=== PATIENT | female | born 1990 | race Hispanic/Latino ===

== ENCOUNTER 2018-05-06 01:28 | Emergency (ER) | payer OTHER, SELFPAY ==
[2018-05-06 02:53] LABS: Urine Bacteria <20 /HPF (<20); Urine Culture Reflex Order NOT NEEDED; Urine RBC <5 /HPF (NONE SEEN)
[2018-05-06 03:48] LABS: Absolute Lymphocytes (CBC) 3.7 K/uL (0.7-4.9); Absolute Monocytes 0.4 K/uL (0.1-1.3); Basophils % 0.6 % (0-1.3); Eosinophils % 2.6 % (0-4.4); Hematocrit 35.4 % (36.0-45.0); Lymphocytes % 32.2 % (15.3-44.8); MCH 29.2 pg (27.0-35.0); MCV 87.2 fL (80-100); MPV 8.3 fL (7.6-11.3); Monocytes % 3.6 % (3.3-12.3); RBC Red Blood Cell Count 4.06 M/uL (3.86-4.86)
[2018-05-06 03:49] LABS: Bicarbonate 25 mEq/L (21-31); Glucose Level 109 mg/dL (65-120); Potassium 3.5 mEq/L (3.6-5.0); Sodium Level 135 mEq/L (135-145)
[2018-05-06 03:50] LABS: BUN Blood Urea Nitrogen 8 mg/dL (6-20)
[2018-05-06 03:56] LABS: Albumin 4.3 g/dL (3.2-5.5); Bilirubin Direct 0.1 mg/dL (0-0.2); Bilirubin Total 0.5 mg/dL (0.3-1.2); Protein, Total 8.3 g/dL (6.0-8.3)
[2018-05-06 04:04] LABS: HCG, Quantitative 47.9 mIU/mL (<5)
[2018-05-06 04:07] LABS: Blood Morphology Comment NOT SEEN (NOT SEEN); Platelet Estimate ADEQ; Urine White Blood Cell Casts OK
[2018-05-06 04:09] LABS: Urine Blood 1+ (NEG); Urine Glucose NEGATIVE (NEG); Urine Protein NEGATIVE (NEG); Urine Specific Gravity 1.015 (1.005-1.030)
--- NOTE | 2018-05-06 04:14 | ER ---
Nurse's Notes [facility] Name: Iva Frye Age: 28 yrs Sex: Female : 1990 Arrival Date: 05/06/2018 Time: 01:29 Bed 16 Private MD: Diagnosis: Lower abdominal pain, unspecified;Encounter for test, result positive Presentation: 05/06 01:35 Presenting complaint: Patient states: that she is having severe left lower pelvic pain. fc Vomiting x 2 days and has had no bowel movement in 2 days. Took test last night at 2200 and it was positive. Transition of care: patient was not received from another setting of care. Onset of symptoms was May 03, 2018. Risk Assessment: Do you want to hurt yourself or someone else? Patient reports no desire to harm self or others. Initial Sepsis Screen: Does the patient meet any 2 criteria? HR > 90 bpm. Yes Does the patient have a suspected source of infection? No. Patient's initial sepsis screen is negative. Care prior to arrival: None. 01:35 Method Of Arrival: Ambulatory 01:35 Acuity: TIARRA 3 Triage Assessment: 01:40 General: Appears uncomfortable, obese, Behavior is calm, cooperative, appropriate for age. Pain: Complains of pain in left lower quadrant Pain currently is 5 out of 10 on a pain scale. at worst was 7 out of 10 on a pain scale. Quality of pain is described as sharp, stabbing, squeezing, Pain began 2-3 days ago. Is continuous. EENT: No deficits noted. Neuro: Level of Consciousness is awake, alert, obeys commands, Oriented to person, place, time, situation. Cardiovascular: No deficits noted. GI: Reports lower abdominal pain, constipation. : No deficits noted. Derm: Skin is pink, warm \T\ dry. Musculoskeletal: Circulation, motion, and sensation intact. Capillary refill < 3 seconds, Range of motion: intact in all extremities. 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 - Social history:: Smoking status: Patient uses tobacco products, 2 cigarettes a day, Patient uses alcohol, occasionally. Patient/guardian denies using street drugs. - Ebola Screening: : Patient negative for fever greater than or equal to 101.5 degrees Fahrenheit, and additional compatible Ebola Virus Disease symptoms Patient denies exposure to infectious person Patient denies travel to an Ebola-affected area in the 21 days before illness onset. - Family history:: not pertinent. - Hospitalizations: : No recent hospitalization is reported. Screenin:45 Abuse screen: Denies threats or abuse. Nutritional screening: No deficits noted. jd3 Tuberculosis screening: No symptoms or risk factors identified. Fall Risk Gait- Normal/Bed Rest/Wheelchair (0 pts) Mental Status- Oriented to own ability (0 pts). Total Rm Fall Scale indicates No Risk (0-24 pts). Assessment: 01:55 General: Appears in no apparent distress. uncomfortable, Behavior is calm, cooperative, jd3 appropriate for age. Pain: Complains of pain in left inguinal area Pain does not radiate. Quality of pain is described as aching, crampy, pressure, Pain began 2-3 days ago. Also complains of nausea. Neuro: Level of Consciousness is awake, alert, obeys commands, Oriented to person, place, time, situation, Appropriate for age. Cardiovascular: Heart tones S1 S2 present Capillary refill < 3 seconds Patient's skin is warm and dry. Respiratory: Airway is patent Respiratory effort is even, unlabored, Respiratory pattern is regular, symmetrical, Breath sounds are clear bilaterally. GI: Abdomen is round Bowel sounds present X 4 quads. Abd is soft X 4 quads Abdomen is tender to palpation in left lower quadrant Reports constipation, nausea, vomiting. : No signs and/or symptoms were reported regarding the genitourinary system. EENT: No signs and/or symptoms were reported regarding the EENT system. Derm: Skin is intact, Skin is dry, Skin is normal, Skin temperature is warm. Musculoskeletal: Circulation, motion, and sensation intact. Range of motion: intact in all extremities. 03:31 Reassessment: Patient appears in no apparent distress at this time. Patient and/or jd3 family updated on plan of care and expected duration. Pain level reassessed. Patient is alert, oriented x 3, equal unlabored respirations, skin warm/dry/pink. 04:20 Reassessment: Patient appears in no apparent distress at this time. Patient and/or bs1 family updated on plan of care and expected duration. Pain level reassessed. Patient is alert, oriented x 3, equal unlabored respirations, skin warm/dry/pink. Instructed patient to follow up with an OB Dr and get HCG levels rechecked. vitamins and when to come back to the ER if having severe pain or bleeding. Patient states feeling better. Vital Signs: 01:38 BP 137 / 76; Pulse 101; Resp 18; Temp 98.5(O); Pulse Ox 100% on R/A; Weight 101.6 kg fc (R); Height 5 ft. 4 in. (162.56 cm) (R); Pain 5/10; 03:31 BP 114 / 75; Pulse 94; Resp 18 S; Pulse Ox 100% on R/A; Pain 5/10; jd3 04:15 BP 116 / 72; Pulse 88; Resp 17; Temp 98(O); Pulse Ox 100% on R/A; Pain 0/10; bs1 01:38 Body Mass Index 38.45 (101.60 kg, 162.56 cm) ED Course: 01:29 Patient arrived in ED. am2 01:36 Triage completed. fc 01:38 Arm band placed on Patient placed in waiting room, Patient notified of wait time. fc 01:55 Kenton Li, HERRERA is Primary Nurse. jd3 02:18 Rony Garcia MD is Attending Physician. rn 02:45 Patient has correct armband on for positive identification. Placed in gown. Bed in low jd3 position. Call light in reach. Side rails up X 1. Adult w/ patient. 02:49 Patient moved back from ultrasound. lily 02:51 Transvaginal Study Probe In Process Unspecified. EDMS 03:15 Initial lab(s) drawn, by me, sent to lab. Inserted saline lock: 20 gauge in right cb2 antecubital area, using aseptic technique. Blood collected. 04:19 No provider procedures requiring assistance completed. IV discontinued, bleeding bs1 controlled, No redness/swelling at site. Pressure dressing applied. Administered Medications: No medications were administered Outcome: 04:14 Discharge ordered by . rn 04:20 Discharged to home ambulatory. bs1 04:20 Condition: stable 04:20 Discharge instructions given to patient, Instructed on discharge instructions, follow up and referral plans. Demonstrated understanding of instructions, follow-up care. 04:23 Patient left the ED. bs1 Signatures: Dispatcher [employer] EDMS Marleen Oreilly, RN RN Rony Garcia MD MD rn Dupre, Jacques jd Moreno, Amanda am2 Bulan, Christian cb2 Davies, Jonathon RN RN jFelicia Eden RN RN bs1 Corrections: (The following items were deleted from the chart) 01:40 01:35 Initial Sepsis Screen: Does the patient meet any 2 criteria? No. Patient's fc initial sepsis screen is negative. Does the patient have a suspected source of infection? No. Patient's initial sepsis screen is negative. fc 01:41 01:38 Pulse 101bpm; Resp 18bpm; Pulse Ox 100% RA; Temp 98.5F Oral; 101.6 kg Reported; fc Height 5 ft. 4 in. Reported; BMI: 38.4; Pain 5/10; fc 04:21 04:20 Reassessment: Patient appears in no apparent distress at this time. Patient bs1 and/or family updated on plan of care and expected duration. Pain level reassessed. Patient is alert, oriented x 3, equal unlabored respirations, skin warm/dry/pink. Patient states feeling better. bs1
--- NOTE | 2018-05-06 04:14 | EDPHYS ---
Physician Documentation [facility] Name: Iva Frye Age: 28 yrs Sex: Female : 1990 Arrival Date: 05/06/2018 Time: 01:29 Bed 16 Private MD: ED Physician Rony Garcia HPI: 05/06 03:52 This 28 yrs old Female presents to ER via Ambulatory with complaints of Pelvic rn Pain - Left side. 03:52 The patient presents with abdominal pain in the lower abdomen. Onset: The rn symptoms/episode began/occurred 2 day(s) ago. The symptoms do not radiate. Associated signs and symptoms: Pertinent positives: constipation, nausea, vomiting, Pertinent negatives: blood in stools, dysuria, fever. The symptoms are described as achy. Modifying factors: The symptoms are alleviated by nothing, the symptoms are aggravated by touching the area. Severity of pain: At its worst the pain was mild in the emergency department the pain is unchanged. The patient has experienced a previous episode. Reports + lower abd pain, left side, states took preg test at home and was , LMP april 01, first , intermittent LLQ pain, + hx of ovarian cysts. . 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 - Social history:: Smoking status: Patient uses tobacco products, 2 cigarettes a day, Patient uses alcohol, occasionally. Patient/guardian denies using street drugs. - Ebola Screening: : Patient negative for fever greater than or equal to 101.5 degrees Fahrenheit, and additional compatible Ebola Virus Disease symptoms Patient denies exposure to infectious person Patient denies travel to an Ebola-affected area in the 21 days before illness onset. - Family history:: not pertinent. - Hospitalizations: : No recent hospitalization is reported. ROS: 03:52 Constitutional: Negative for fever, chills, and weight loss, Eyes: Negative for injury, rn pain, redness, and discharge, Cardiovascular: Negative for chest pain, palpitations, and edema, Respiratory: Negative for shortness of breath, cough, wheezing, and pleuritic chest pain, Abdomen/GI: + LLQ abd pain Back: Negative for injury and pain, MS/Extremity: Negative for injury and deformity, Skin: Negative for injury, rash, and discoloration, Neuro: Negative for headache, weakness, numbness, tingling, and seizure. Exam: 03:52 Constitutional: This is a well developed, well nourished patient who is awake, alert, rn and in no acute distress. Head/Face: Normocephalic, atraumatic. Eyes: Pupils equal round and reactive to light, extra-ocular motions intact. Lids and lashes normal. Conjunctiva and sclera are non-icteric and not injected. Cornea within normal limits. Periorbital areas with no swelling, redness, or edema. Abdomen/GI: soft, + LLQ tenderness, no rebound/guarding Back: No spinal tenderness. No costovertebral tenderness. Full range of motion. Skin: Warm, dry with normal turgor. Normal color with no rashes, no lesions, and no evidence of cellulitis. MS/ Extremity: Pulses equal, no cyanosis. Neurovascular intact. Full, normal range of motion. Equal circumference. Neuro: Awake and alert, GCS 15, oriented to person, place, time, and situation. Cranial nerves II-XII grossly intact. Motor strength 5/5 in all extremities. Sensory grossly intact. Cerebellar exam normal. Normal gait. Vital Signs: 01:38 BP 137 / 76; Pulse 101; Resp 18; Temp 98.5(O); Pulse Ox 100% on R/A; Weight 101.6 kg fc (R); Height 5 ft. 4 in. (162.56 cm) (R); Pain 5/10; 03:31 BP 114 / 75; Pulse 94; Resp 18 S; Pulse Ox 100% on R/A; Pain 5/10; jd3 04:15 BP 116 / 72; Pulse 88; Resp 17; Temp 98(O); Pulse Ox 100% on R/A; Pain 0/10; bs1 01:38 Body Mass Index 38.45 (101.60 kg, 162.56 cm) MDM: 02:18 Patient medically screened. rn 04:13 Differential diagnosis: Ectopic , non-specific abd pain, Ovarian Torsion, rn urinary tract infection. Data reviewed: vital signs, nurses notes, lab test result(s), radiologic studies, ultrasound, and as a result, I will discharge patient. Counseling: I had a detailed discussion with the patient and/or guardian regarding: the historical points, exam findings, and any diagnostic results supporting the discharge/admit diagnosis, lab results, radiology results, the need for outpatient follow up, to return to the emergency department if symptoms worsen or persist or if there are any questions or concerns that arise at home. Special discussion: I discussed with the patient/guardian in detail that at this point there is no indication for admission to the hospital. It is understood, however, that if the symptoms persist or worsen the patient needs to return immediately for re-evaluation. Based on the history and exam findings, there is no indication for further emergent testing or inpatient evaluation. I discussed with the patient/guardian the need to see the OB Gyne specialist for further evaluation of the symptoms. 05/06 02:09 Order name: Test, Serum; Complete Time: 04: 05/06 02:17 Order name: Urine Dipstick--Ancillary (enter results); Complete Time: 04: [facility] 05/06 02:17 Order name: Urine --Ancillary (enter results); Complete Time: 04: [facility] 05/06 02:24 Order name: Quantitative Hcg 05/06 02:24 Order name: Abo/rh Typing 05/06 02:24 Order name: Basic Metabolic Panel 05/06 02:24 Order name: CBC with Diff; Complete Time: 04: 05/06 02:25 Order name: HCG, Quantitative; Complete Time: 04: [facility] 05/06 02:25 Order name: ABO/RH typing; Complete Time: 04: [facility] 05/06 02:25 Order name: Basic Metabolic Panel; Complete Time: 04: [facility] 05/06 02:30 Order name: Creatinine for Radiology; Complete Time: 03:51 05/06 02:30 Order name: Hepatic Function; Complete Time: 04: 05/06 02:30 Order name: Lipase; Complete Time: 04: 05/06 02:30 Order name: Urine Microscopic Only; Complete Time: 03:06 05/06 02:10 Order name: Urine Dipstick-Ancillary (obtain specimen); Complete Time: 02: 05/06 02:10 Order name: Urine Test (obtain specimen); Complete Time: 02: 05/06 02:24 Order name: IV Saline Lock; Complete Time: 03:15 rn 05/06 02:24 Order name: Labs collected and sent; Complete Time: 03:15 rn 05/06 02:24 Order name: NPO; Complete Time: 02:34 rn 05/06 02:51 Order name: Transvaginal Study Probe EDWA 05/06 04:07 Order name: CBC Smear Scan; Complete Time: 04:09 EDWA Administered Medications: No medications were administered Disposition: 05/06/18 04:14 Discharged to Home. Impression: Lower abdominal pain, unspecified, Encounter for test, result positive. - Condition is Stable. - Discharge Instructions: Abdominal Pain During , First Trimester of . - Medication Reconciliation Form, Thank You Letter, Antibiotic Education, Prescription Opioid Use form. - Follow up: Private Physician; When: 48 Hours; Reason: Recheck today's complaints, Repeat Beta-HCG (48 Hours), Re-evaluation by your physician. - Problem is new. - Symptoms have improved. Signatures: Dispatcher [employer] [facility] Marleen Oreilly RN RN Tawny Dewitt RN RN bb Nieto, Roman, MD MD rn Salazar, Brittany, RN RN bs1 Corrections: (The following items were deleted from the chart) 02:51 02:25 Pelvis Complete+US.RAD.BRZ ordered. [facility] 04:23 04:14 05/06/2018 04:14 Discharged to Home. Impression: Lower abdominal pain, bs1 unspecified; Encounter for test, result positive. Condition is Stable. Forms are Medication Reconciliation Form, Thank You Letter, Antibiotic Education, Prescription Opioid Use. Follow up: Private Physician; When: 48 Hours; Reason: Recheck today's complaints, Repeat Beta-HCG (48 Hours), Re-evaluation by your physician. Problem is new. Symptoms have improved. rn
--- NOTE | 2018-05-06 10:07 | RAD REPORT ---
EXAM DESCRIPTION: US - Transvaginal Study Probe - 05/06/2018 2:51 am CLINICAL HISTORY: Pelvic pain. COMPARISON: None. FINDINGS: The uterus is normal in size, shape and echotexture. The uterus measures 9.0 x 4.7 x 4.5 c m. The endometrial stripe measures 17 mm, mildly thickened. No gestational sac is seen. Both ovaries are normal in size, shape and echotexture. The right ovary measures 3.3 x 2.3 x 1.9 cm. The left ovary measures 2.4 x 2.6 x 1.6 cm.. No ovarian or parovarian lesions. No adnexal masses. Normal Doppler blood flow was demonstrated to both ovaries. IMPRESSION: Negative examination.In the setting of a positive HCG level, this would be considered a of unknown location and short interval follow-up serial HCG and pelvic sonography would be recommended.
== END 2018-05-06 04:23 | disposition home or self-care (01) ==
LOC: ER 01:28
DX: R10.30 Lower abdominal pain, unspecified (principal); Z34.00 Encounter for supervision of normal first pregnancy, unspecified trimester
CPT/HCPCS: 36415; 76830; 80048; 80076; 81003; 81015; 81025; 83690; 84702; 84703; 85025; 86900; 86901; 99284

== ENCOUNTER 2018-05-24 08:41 | Emergency (ER) | payer OTHER, SELFPAY ==
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
--- OUTSIDE RECORDS SUMMARY | 2018-05-24 08:48 | XMS REPORT | Summary of Care ---
:1990 Author Organization [facility] Address [address] [place], [place] [address]- Encounter HQ Edward(TIMMY) [id number] Date(s): 02/15/16 - 02/15/16 [facility] [address] [place] [address]- [phone] Discharge Diagnosis: Chronic cough Discharge Disposition: Home Attending Physician: Jay Padron MD Vital Signs Most recent to oldest [Reference Range]: 1 2 Height 162.56 cm (02/15/16 12:57 AM) Temperature Oral [96.4-99.1 DegF] 98.0 DegF 99.2 DegF (02/15/16 2:25 AM) *HI* (02/15/16 12:57 AM) Blood Pressure [90-140/60-90 mmHg] 115/65 mmHg 140/92 mmHg (02/15/16 2:25 AM) (02/15/16 12:57 AM) Respiratory Rate [14-20 BRMIN] 16 BRMIN 20 BRMIN (02/15/16 2:25 AM) (02/15/16 12:57 AM) Peripheral Pulse Rate [60-100 bpm] 86 bpm 102 bpm (02/15/16 2:25 AM) *HI* (02/15/16 12:57 AM) Weight 83.636 kg (02/15/16 12:57 AM) Body Mass Index 31.65 m2 (02/15/16 12:57 AM) Problem List Condition Effective Dates Status Health Status Informant Abdominal pain(Confirmed) Active Diarrhea(Confirmed) Active Nausea(Confirmed) Active Ovarian cyst(Confirmed) Active Pneumonia(Confirmed) Resolved Allergies, Adverse Reactions, Alerts Substance Reaction Severity Status NKDA Active Medications Tessalon Perles 100 mg oral capsule 100 mg=1 cap, PO, TID, PRN Cough, X 7 day, # 21 cap, 0 Refill(s) Start Date: 02/15/16 Stop Date: 02/22/16 Status: OrderedTylenol with Codeine #3 oral tablet 2 tab, Route: PO, Drug Form: TAB, Dosing Weight 83.636, kg, ONCE, STAT, Start date: 02/15/16 1:15:00, Stop date: 02/15/16 1:15:00 Start Date: 02/15/16 Stop Date: 02/15/16 Status: Completed Results No data available for this section Immunizations No data available for this section Procedures No data available for this section Social History Social History Type Response Alcohol Current, Type Beer, Wine, Liquor. Smoking Status Former smoker; Type: Cigarettes; Lives with someone who smokes; Cigarette Smoking Last 365 Days No; Reg Smoking Cessation Counseling No Assessment and Plan No data available for this section
--- OUTSIDE RECORDS SUMMARY | 2018-05-24 08:48 | XMS REPORT | Summary of Care ---
:1990 Author Name MARIA T Clark, COMFORT Address Unavailable Unavailable , Care Team Providers Name Role Phone MARIA T Clark, COMFORT Unavailable Unavailable Unavailable Unavailable Unavailable Functional Status Name Dates Details Functional status health issues are not documented Status: Name Dates Details Cognitive status health issues are not documented Status: Problems Name Dates Details Unconfirmed (V72.40, Z32.00) Status: Active Ectopic (633.90, O00.90) Status: Active Abdominal swelling, left lower quadrant (789.34, R19.04) Status: Active of unknown anatomic location (V22.2, Z34.90) Status: Active Medications Name Dates Details Tylenol PM Extra Strength 500-25 MG Oral Tablet Refills: 0 Start : 12-May-2018 Active Allergies and Adverse Reactions Name Dates Details No Known Drug Allergies (Allergy) Status: Active Past Medical History Name Dates Details No pertinent past medical history Status: Resolved Procedures Procedure Dates Details [QLH] HCG, TOTAL, QN Date: 12-May-2018 [H] Obstetrics Panel (includes CBCw/Diff,RPR, Date: 12-May-2018 HbsAg,RubIgG,Type and Screen) [QH] HIV AB, HIV 1/2, EIA, WITH REFLEXES Date: 12-May-2018 [QLH] CULTURE, URINE, ROUTINE Date: 12-May-2018 [QLH] URINALYSIS, COMPLETE Date: 12-May-2018 History of No history of surgery Completed Immunization Name Dates Details Immunizations not documented Social History Name Dates Details - Status: Name Dates Details Former smoker Vital Signs Date Test Result Details [id number] BP Systolic 122 mm[Hg] Status: Comments: Location: LUE; Position: Sitting BP Diastolic 74 mm[Hg] Status: Comments: Location: LUE; Position: Sitting Height 64 in Status: Weight 237.5 lb Status: Body Mass Index Calculated 40.77 kg/m2 Status: Body Surface Area Calculated 2.1 m2 Status: Temperature 98.2 f Status: Comments: Method: Oral Results Date Description Value Details [id number] [O] Urine Test (in office) Test, Urine positive (Abnormal) Plan of Care Name Dates Details Planned Observations Planned Goals not documented Planned Encounters Appointment; NICOLLE LIVE M.D. On: 02-Jun-2018 10:30 Interventions Provided Labs/Procedures/Imaging[H] Obstetrics Panel (includes CBCw/Diff,RPR, HbsAg, RubIgG,Type and Screen); To Be Done: 12 May 2018[QH] HIV AB, HIV 1/2, EIA, WITH REFLEXES; To Be Done: 12 May 2018[QLH] CULTURE, URINE, ROUTINE; To Be Done: 12 May 2018[QLH] HCG, TOTAL, QN; To Be Done: 12 May 2018[QL] URINALYSIS, COMPLETE ; To Be Done: 12 May 2018InstructionsPatient Specific Education Given; Done: 12 May 2018Plan1. Beta hcg level 2. labs 3. Discussed staying hydrated and eating small frequent meal. Encouraged increasing water intake. 4. F/u in 2 -3 weeks for sonogram 5. Discussed possibility of ectopic and SAB Instructions Name Dates Details Instructions not documented Encounters Appointment; NICOLLE LIVE M.D. On: 12-May-2018 15:15 Encounter Diagnosis: Problem not documented
--- OUTSIDE RECORDS SUMMARY | 2018-05-24 08:48 | XMS REPORT | CCD ---
:[address] [facility] Care Team Providers Name Role Phone Lucy Still Consulting Provider Allergies, Adverse Reactions, Alerts Substance Reaction Status NKDA Active Problem List Condition Effective Dates Status Abdominal pain Active Diarrhea Active Nausea Active Ovarian cyst Active Medications Medication Instructions Start Date End Date Status morphine Sulfate 2 mg, 1 mL, Route: IVP, 12/10/2012 12/10/2012 Completed Drug form: INJ, ONCE, Dosing Weight 76.364, kg, Priority: STAT, Start date: 12/10/12 19:27:00, Stop date: 12/10/12 19:27:00 Saline Flush 0.9% 5 mL, Route: IVP, Drug 12/10/2012 12/10/2012 Discontinued Form: INJ, Dosing Weight 76.364, kg, PRN, PRN Line Flush, Start date: 12/10/12 19:27:00, Duration: 30 day, Stop date: 01/09/13 19:26:00 Flexeril 5 mg oral 5 mg, PO, TID, PRN, 20 12/10/2012 Ordered tablet tab, Muscle spasm, Substitution Allowed Ultram 50 mg oral tablet 50 mg, 1 tab, PO, Q4H, 12/10/2012 Ordered PRN, 12 tab, pain, Substitution Allowed Vital Signs Most recent to oldest [Reference Range]: 1 Height 162.56 cm (12/10/2012 19:31:00) Weight 77.273 kg (12/10/2012 19:31:00) Results URINALYSIS Most recent to oldest [Reference Range]: 1 UA Turbidity [Clear] Clear (12/10/2012 19:28:00) UA Color Ltyellow *NA* (12/10/2012 19:28:00) UA pH [5.0-8.0] 7.0 (12/10/2012 19:28:00) UA Spec Grav [<=1.030] 1.005 (12/10/2012:28:00) UA Glucose [Negative mg/dL] Negative mg/dL *NA* (12/10/2012:28:00) UA Blood [Negative] Negative (12/10/2012:28:00) UA Ketones [Negative mg/dL] Negative mg/dL *NA* (12/10/2012:28:00) UA Protein [Negative mg/dL] Negative mg/dL (12/10/2012:28:00) UA Urobilinogen [0.1-1.0 mg/dL] <=1.0 mg/dL *NA* (12/10/2012:28:00) UA Bili [Negative] Negative *NA* (12/10/2012::00) UA Leuk Est [Negative] Negative (12/10/2012:28:00) UA Nitrite [Negative] Negative (12/10/2012:28:00) UA WBC [0-5 /HPF] <1 /HPF (12/10/2012:28:00) UA RBC [0-2 /HPF] 1 /HPF (12/10/2012:28:00) UA Bacteria [None Seen /HPF] Occasional /HPF *NA* (12/10/2012:28:00) UA Sq Epi [Few /LPF] Occasional /LPF *NA* (12/10/2012:28:00) UA Mucus [None Seen /LPF] Few /LPF *NA* (12/10/2012:28:00) CHEMISTRY Most recent to oldest [Reference Range]: 1 Sodium Lvl [135-145 mEq/L] 142 mEq/L (12/10/2012:28:00) Potassium Lvl [3.5-5.1 mEq/L] 3.7 mEq/L (12/10/2012::00) Chloride Lvl [95-109 mEq/L] 108 mEq/L (12/10/2012:28:00) CO2 [24-32 mEq/L] 25 mEq/L (12/10/2012:28:00) AGAP [10.0-20.0 mEq/L] 12.7 mEq/L (12/10/2012:28:00) Creatinine Lvl [0.5-1.4 mg/dL] 0.7 mg/dL (12/10/2012) eGFR 123 mL/min/1.73m2 1 *NA* (12/10/2012) BUN [7-22 mg/dL] 9 mg/dL (12/10/2012:) B/C Ratio [6-25] 13 (12/10/2012) Glucose Lvl [70-99 mg/dL] 97 mg/dL 2 (12/10/2012) Total Protein [6.4-8.4 g/dL] 7.5 g/dL (12/10/2012) Albumin Lvl [3.5-5.0 g/dL] 3.9 g/dL (12/10/2012) Globulin [2.0-4.0 g/dL] 3.6 g/dL (12/10/2012) A/G Ratio [0.7-1.6] 1.1 (12/10/2012) Calcium Lvl [8.5-10.5 mg/dL] 8.7 mg/dL (12/10/2012) ALT [0-65 unit/L] 22 unit/L (12/10/2012) AST [0-37 unit/L] 15 unit/L (12/10/2012) Alk Phos [39-136 unit/L] 69 unit/L (12/10/2012) Bili Total [0.2-1.3 mg/dL] 0.3 mg/dL (12/10/2012) 1Result Comment: The eGFR is calculated using the CKD-EPI formula. In most young , healthy individualsthe eGFR will be >90 mL/min/1.73m2. The eGFR declines with age. An eGFR of 60-89 may be normal in some populations, particularly the elderly, for whom the CKD-EPI formula has not been extensively validated. Use of the eGFR is not recommended in the following populations: Individuals with unstable creatinine concentrations, including patients and those with serious co-morbid conditions. Patients with extremes in muscle mass or diet. The data above are obtained from the National Kid[employer] Disease Education Program ( NKDEP) which additionally recommends that when the eGFR is used in patients with extremes of body mass index for purposesof drug dosing, the eGFR should be multiplied by the estimated BMI.2Interpretive Data: Adult reference range values reflect the clinical guidelines of the [employer].HEMATOLOGY Most recent to oldest [Reference Range]: 1 WBC [3.7-10.4 K/CMM] 10.1 K/CMM (12/10/2012) RBC [4.20-5.40 M/CMM] 3.97 M/CMM *LOW* (12/10/2012) Hgb [12.0-16.0 g/dL] 12.0 g/dL (12/10/2012) Hct [36.0-48.0 %] 34.8 % *LOW* (12/10/2012) MCV [81.0-99.0 fL] 87.7 fL (12/10/2012) MCH [27.0-31.0 pg] 30.2 pg (12/10/2012) MCHC [32.0-36.0 g/dL] 34.4 g/dL (12/10/2012) RDW [11.5-14.5 %] 13.1 % (12/10/2012) Platelet [133-450 K/CMM] 294 K/CMM (12/10/2012) MPV [7.4-10.4 fL] 8.1 fL (12/10/2012) Segs [45.0-75.0 %] 72.4 % (12/10/2012) Lymphocytes [20.0-40.0 %] 21.0 % (12/10/2012) Monocytes [2.0-12.0 %] 5.2 % (12/10/2012) Eosinophils [0.0-4.0 %] 1.0 % (12/10/2012 19:28:00) Basophils [0.0-1.0 %] 0.4 % (12/10/2012 19:28:00) Segs-Bands # [1.5-8.1 K/CMM] 7.3 K/CMM (12/10/2012 19:28:00) Lymphocytes # [1.0-5.5 K/CMM] 2.1 K/CMM (12/10/2012 19:28:00) Monocytes # [0.0-0.8 K/CMM] 0.5 K/CMM (12/10/2012 19:28:00) Eosinophils # [0.0-0.5 K/CMM] 0.1 K/CMM (12/10/2012 19:28:00) Basophils # [0.0-0.2 K/CMM] 0.0 K/CMM (12/10/2012 19:28:00)
--- OUTSIDE RECORDS SUMMARY | 2018-05-24 08:48 | XMS REPORT | Summary of Care ---
:1990 Author Organization [facility] Address [address] [place], [place] [address]- Encounter HQ Edward(TIMMY) [id number] Date(s): 08/10/15 - 08/10/15 [facility] [address] [place] [address]- Discharge Diagnosis: Acute pelvic pain, female Discharge Diagnosis: Acute gastritis Discharge Disposition: Home Attending Physician: Gabe Shipman MD Vital Signs Most recent to oldest [Reference Range]: 1 2 3 Height 162.56 cm (08/10/15 3:29 PM) Most recent to oldest 1 2 3 [Reference Range]: Temperature Oral [96.4-99.1 98.6 DegF 98 DegF 98 DegF DegF] (08/10/15 9:29 PM) (08/10/15 7:27 PM) (08/10/15 6:08 PM) Most recent to oldest 1 2 3 [Reference Range]: Blood Pressure [90-140/60-90 116/53 mmHg 119/75 mmHg 120/68 mmHg mmHg] (08/10/15 9:29 PM) (08/10/15 7:27 PM) (08/10/15 6:08 PM) Most recent to oldest 1 2 3 [Reference Range]: Respiratory Rate [14-20 BRMIN] 18 BRMIN 19 BRMIN 17 BRMIN (08/10/15 9:29 PM) (08/10/15 7:27 PM) (08/10/15 6:08 PM) Most recent to oldest [Reference Range]: 1 2 3 Peripheral Pulse Rate [60-100 bpm] 84 bpm (08/10/15 3:29 PM) Most recent to oldest [Reference Range]: 1 2 3 Weight 86.364 kg (08/10/15 3:29 PM) Most recent to oldest [Reference Range]: 1 2 3 Body Mass Index 32.68 m2 (08/10/15 3:29 PM) Problem List Condition Effective Dates Status Health Status Informant Abdominal pain(Confirmed) Active Diarrhea(Confirmed) Active Nausea(Confirmed) Active Ovarian cyst(Confirmed) Active Pneumonia(Confirmed) Resolved Allergies, Adverse Reactions, Alerts Substance Reaction Severity Status NKDA Active Medications famotidine 20 mg, Route: IVP, ONCE, Dosing Weight 86.364, kg, Priority: STAT, Start date: 08/10/15 16:39:00, Stop date: 08/10/15 16:39:00 Start Date: 08/10/15 Stop Date: 08/10/15 Status: Completedfamotidine 20 mg oral tablet 20 mg=1 tab, PO, BID, # 60 tab, 0 Refill(s) Start Date: 08/10/15 Status: OrderedGI cocktail 30 mL, Route: PO, Dosing Weight 86.364, kg, ONCE, STAT, Start date: 08/10/15 16: 39:00, Stop date: 08/10/15 16:39:00 Start Date: 08/10/15 Stop Date: 08/10/15 Status: Completedmorphine Sulfate 2 mg, Route: IVP, Drug form: INJ, ONCE, Dosing Weight 86.364, kg, Priority: STAT , Start date: 08/10/15 19:15:00, Stop date: 08/10/15 19:15:00 Start Date: 08/10/15 Stop Date: 08/10/15 Status: Completedondansetron 4 mg, Route: IVP, ONCE, Dosing Weight 86.364, kg, Priority: STAT, Start date: 16:39:00, Stop date: 08/10/15 16:39:00 Start Date: 08/10/15 Stop Date: 08/10/15 Status: CompletedSaline Flush 0.9% 10 mL, Route: IVP, Drug Form: INJ, Dosing Weight 86.364, kg, PRN, PRN Line Flush , Start date: 08/10/15 16:39:00, Duration: 30 day, Stop date: 09/09/15 16:38:00 Notes: (Same as: BD Posiflush) Start Date: 08/10/15 Stop Date: 08/10/15 Status: DiscontinuedSodium Chloride 0.9% (Bolus) IV 1,000 mL, Infuse Over: 1 hr, Route: IV, ONCE, Priority: STAT, Dosing Weight 86.364 kg, Start date: 08/10/15 16:39:00, Duration: 1 doses or times, Stop date : 08/10/15 16:39:00 Start Date: 08/10/15 Stop Date: 08/10/15 Status: Completed Results ELECTROLYTES Most recent to oldest [Reference Range]: 1 Sodium Lvl [135-145 mEq/L] 137 mEq/L (08/10/15 4:54 PM) Potassium Lvl [3.5-5.1 mEq/L] 3.7 mEq/L (08/10/15 4:54 PM) Chloride Lvl [95-109 mEq/L] 103 mEq/L (08/10/15 4:54 PM) CO2 [24-32 mEq/L] 28 mEq/L (08/10/15 4:54 PM) AGAP [10.0-20.0 mEq/L] 9.7 mEq/L *LOW* (08/10/15 4:54 PM) CHEM PANEL Most recent to oldest [Reference Range]: 1 Creatinine Lvl [0.5-1.4 mg/dL] 0.8 mg/dL (08/10/15 4:54 PM) eGFR 103 mL/min/1.73m2 1 *NA* (08/10/15 4:54 PM) BUN [7-22 mg/dL] 10 mg/dL (08/10/15 4:54 PM) B/C Ratio [6-25] 12 (08/10/15 4:54 PM) Glucose Lvl [70-99 mg/dL] 90 mg/dL (08/10/15 4:54 PM) Total Protein [6.4-8.4 g/dL] 7.4 g/dL (08/10/15 4:54 PM) Albumin Lvl [3.5-5.0 g/dL] 3.9 g/dL (08/10/15 4:54 PM) Globulin [2.0-4.0 g/dL] 3.5 g/dL (08/10/15 4:54 PM) A/G Ratio [0.7-1.6] 1.1 (08/10/15 4:54 PM) Calcium Lvl [8.5-10.5 mg/dL] 8.8 mg/dL (08/10/15 4:54 PM) ALT [0-65 unit/L] 28 unit/L (08/10/15 4:54 PM) AST [0-37 unit/L] 16 unit/L (08/10/15 4:54 PM) Alk Phos [39-136 unit/L] 71 unit/L (08/10/15 4:54 PM) Bili Total [0.2-1.3 mg/dL] 0.4 mg/dL (08/10/15 4:54 PM) Lipase Lvl [73-393 unit/L] 110 unit/L (08/10/15 4:54 PM) 1Result Comment: The eGFR is calculated using [...] eGFR should be multiplied by the estimated BMI.URINE AND STOOL Most recent to oldest [Reference Range]: 1 UA Turbidity [Clear] Clear (08/10/15 6:03 PM) UA Color Ltyellow *NA* (08/10/15 6:03 PM) UA pH [5.0-8.0] 5.0 (08/10/15 6:03 PM) UA Spec Grav [<=1.030] 1.012 (08/10/15 6:03 PM) UA Glucose [Negative mg/dL] Negative mg/dL *NA* (08/10/15 6:03 PM) UA Blood [Negative] Small *ABN* (08/10/15 6:03 PM) UA Ketones [Negative mg/dL] Negative mg/dL *NA* (08/10/15 6:03 PM) UA Protein [Negative mg/dL] Negative mg/dL (08/10/15 6:03 PM) UA Urobilinogen [0.1-1.0 mg/dL] <=1.0 mg/dL *NA* (08/10/15 6:03 PM) UA Bili [Negative] Negative *NA* (08/10/15 6:03 PM) UA Leuk Est [Negative] Negative (08/10/15 6:03 PM) UA Nitrite [Negative] Negative (08/10/15 6:03 PM) UA WBC [0-5 /HPF] <1 /HPF (08/10/15 6:03 PM) UA RBC [0-2 /HPF] 2 /HPF (08/10/15 6:03 PM) UA Sq Epi [Few /LPF] Occasional /LPF *NA* (08/10/15 6:03 PM) UA Mucus [None Seen /LPF] Few /LPF *NA* (08/10/15 6:03 PM) HEMATOLOGY Most recent to oldest [Reference Range]: 1 WBC [3.7-10.4 K/CMM] 12.8 K/CMM *HI* (08/10/15 4:54 PM) RBC [4.20-5.40 M/CMM] 4.20 M/CMM (08/10/15 4:54 PM) Hgb [12.0-16.0 g/dL] 11.9 g/dL *LOW* (08/10/15 4:54 PM) Hct [36.0-48.0 %] 36.9 % (08/10/15 4:54 PM) MCV [80.0-98.0 fL] 87.8 fL (08/10/15 4:54 PM) MCH [27.0-31.0 pg] 28.5 pg (08/10/15 4:54 PM) MCHC [32.0-36.0 g/dL] 32.4 g/dL (08/10/15 4:54 PM) RDW [11.5-14.5 %] 13.3 % (08/10/15 4:54 PM) Platelet [133-450 K/CMM] 314 K/CMM (08/10/15 4:54 PM) MPV [7.4-10.4 fL] 7.8 fL (08/10/15 4:54 PM) Segs [45.0-75.0 %] 73.9 % (08/10/15 4:54 PM) Lymphocytes [20.0-40.0 %] 18.7 % *LOW* (08/10/15 4:54 PM) Monocytes [2.0-12.0 %] 5.9 % (08/10/15 4:54 PM) Eosinophils [0.0-4.0 %] 1.0 % (08/10/15 4:54 PM) Basophils [0.0-1.0 %] 0.5 % (08/10/15 4:54 PM) Segs-Bands # [1.5-8.1 K/CMM] 9.5 K/CMM *HI* (08/10/15 4:54 PM) Lymphocytes # [1.0-5.5 K/CMM] 2.4 K/CMM (08/10/15 4:54 PM) Monocytes # [0.0-0.8 K/CMM] 0.8 K/CMM (08/10/15 4:54 PM) Eosinophils # [0.0-0.5 K/CMM] 0.1 K/CMM (08/10/15 4:54 PM) Basophils # [0.0-0.2 K/CMM] 0.1 K/CMM (08/10/15 4:54 PM) MOLECULAR DIAGNOSTIC Most recent to oldest [Reference Range]: 1 Source APTIMA Endocervix *NA* (08/10/15 7:34 PM) N gonorrhea by Amp Det (APTIMA) [Negative] Negative *NA* (08/10/15 7:34 PM) C trachomatis by Amp Det (APTIMA) [Negative] Negative *NA* (08/10/15 7:34 PM) Immunizations No data available for this section [...]
--- OUTSIDE RECORDS SUMMARY | 2018-05-24 08:48 | XMS REPORT | Summary of Care ---
:1990 Author Encounter JORDANA Leon(TIMMY) [id number] Date(s): 03/20/14 - 03/20/14 [facility] [address] [address] - [facility] Discharge Diagnosis: Contusion of wrist, right Discharge Disposition: Home Physician Attending: Dmitry Zhang MD Reason for Visit OTHER Vital Signs Most recent to oldest 1 2 3 [Reference Range]: Height 162.56 cm (03/20/14 10:27 AM) Temperature Oral [96.4-99.1 98.5 DegF DegF] (03/20/14 10:27 AM) Systolic Blood Pressure 104 mmHg 102 mmHg 108 mmHg [90-140 mmHg] (03/20/14 12:56 PM) (03/20/14 11:35 AM) (03/20/14 10:27 AM) Diastolic Blood Pressure 62 mmHg 68 mmHg 73 mmHg [60-90 mmHg] (03/20/14 12:56 PM) (03/20/14 11:35 AM) (03/20/14 10:27 AM) Respiratory Rate [14-20 18 BRMIN 18 BRMIN 16 BRMIN BRMIN] (03/20/14 12:56 PM) (03/20/14 11:35 AM) (03/20/14 10:27 AM) Peripheral Pulse Rate 86 bpm 87 bpm 101 bpm [60-100 bpm] (03/20/14 12:56 PM) (03/20/14 11:35 AM) *HI* (03/20/14 10:27 AM) Weight 76.364 kg (03/20/14 10:27 AM) Body Mass Index 28.9 m2 (03/20/14 10:27 AM) Problem List Condition Effective Dates Status Health Status Informant Abdominal pain(Confirmed) Active Diarrhea(Confirmed) Active Nausea(Confirmed) Active Ovarian cyst(Confirmed) Active Allergies, Adverse Reactions, Alerts Substance Reaction Severity Status NKDA Active Medications Tylenol 1,000 mg, Route: PO, ONCE, Dosing Weight 76.364, kg, Start date: 03/20/14 12:06: 00, Stop date: 03/20/14 12:06:00 Start Date: 03/20/14 Stop Date: 03/20/14 Status: Completed Medications Administered During Your Visit No data available for this section Immunizations No data available for this section Social History Social History Type Response
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
--- OUTSIDE RECORDS SUMMARY | 2018-05-24 08:48 | XMS REPORT ---
:1990 Author Organization [employer] Care Team Providers Name Role Phone Lucinda Jane Provider Role Unavailable Allergies, Adverse Reactions, Alerts Substance Reaction Event Type N.K.D.A. Info Not Available Non Drug Allergy Encounters Encounter Location Date pt scheduled thru Worker Comp Lucinda Jane [place], [place] Dec 12, 2014 Problems Problem Type Condition ICD-9 Code Onset Dates Condition Status Assessment Precordial pain 786.51 Active Social History Social History Element Qualifiers Date Reported Smoking: . Are you a: Current smoker Is currently on and Dec 12, 2014 off, How many packs per day? less than 1/2 pack Alcohol: . Social Dec 12, 2014 Vital Signs Date/Time: Dec 12, 2014 Weight 195 lbs Cardiac Monitoring Heart Rate 80 /min Blood Pressure Diastolic 72 mm Hg Blood Pressure Systolic 108 mm Hg Summary Purpose [employer] Submission
--- OUTSIDE RECORDS SUMMARY | 2018-05-24 08:48 | XMS REPORT | Summary of Care ---
:1990 Author Encounter JORDANA Leon(TIMMY) [id number] Date(s): 01/01/15 - 01/02/15 [facility] [address] [place] [address] - [facility] Discharge Diagnosis: Acute bronchitis Discharge Disposition: Home Physician Attending: Brody Moy MD Reason for Visit FEVER, COUGH Vital Signs Most recent to oldest 1 2 3 [Reference Range]: Height 162.56 cm (01/01/15 11:43 PM) Temperature Oral [96.4-99.1 99.4 DegF 99.6 DegF 99.7 DegF DegF] *HI* *HI* *HI* (01/02/15 1:51 AM) (01/01/15 11:52 PM) (01/01/15 11:43 PM) Systolic Blood Pressure [90-140 124 mmHg 127 mmHg 133 mmHg mmHg] (01/02/15 1:51 AM) (01/01/15 11:52 PM) (01/01/15 11:43 PM) Diastolic Blood Pressure [60-90 64 mmHg 80 mmHg 80 mmHg mmHg] (01/02/15 1:51 AM) (01/01/15 11:52 PM) (01/01/15 11:43 PM) Respiratory Rate [14-20 BRMIN] 22 BRMIN 22 BRMIN 24 BRMIN *HI* *HI* *HI* (01/02/15 1:51 AM) (01/02/15 12:24 AM) (01/01/15 11:52 PM) Peripheral Pulse Rate [60-100 100 bpm 105 bpm 116 bpm bpm] (01/02/15 1:51 AM) *HI* *HI* (01/01/15 11:52 PM) (01/01/15 11:43 PM) Weight 88.636 kg (01/01/15 11:43 PM) Body Mass Index 33.54 m2 (01/01/15 11:43 PM) Problem List Condition Effective Dates Status Health Status Informant Abdominal pain(Confirmed) Active Diarrhea(Confirmed) Active Nausea(Confirmed) Active Ovarian cyst(Confirmed) Active Pneumonia(Confirmed) Resolved Allergies, Adverse Reactions, Alerts Substance Reaction Severity Status NKDA Active Medications albuterol 0.083% inhalation solution 2.49 mg, 3 mL, Route: NEB, Drug form: SOLN, ONCE, Dosing Weight 88.636, kg, Priority: STAT, Start date: 01/01/15 23:59:00, Stop date: 01/01/15 23:59:00 Notes: SEE RT DOCUMENTATION (Same as: Proventil) Start Date: 01/01/15 Stop Date: 01/02/15 Status: CompletedHycodan oral syrup 5 mL, Route: PO, Drug Form: SYRP, Dosing Weight 88.636, kg, ONCE, Start date: 0:00:00, Stopdate: 01/02/15 0:00:00 Notes: (Same as: Hycodan, Hydromet) Start Date: 01/02/15 Stop Date: 01/02/15 Status: Completedipratropium 0.5 mg, 2.5 mL, Route: NEB, Drug form: SOLN, ONCE, Dosing Weight 88.636, kg, Priority: STAT, Start date: 01/01/15 23:59:00, Stop date: 01/01/15 23:59:00 Notes: SEE RT DOCUMENTATION(Same as:Atrovent) Start Date: 01/01/15 Stop Date: 01/02/15 Status: CompletedpredniSONE 60 mg, 3 tab, Route: PO, Drug form: TAB, ONCE, Dosing Weight 88.636, kg, Priority: STAT, Start date:01/02/15 0:00:00, Stop date: 01/02/15 0:00:00 Notes: Take with food. Start Date: 01/02/15 Stop Date: 01/02/15 Status: CompletedpredniSONE 50 mg oral tablet 50 mg=1 tab, PO, Daily, # 4 tab, 0 Refill(s) Start Date: 01/02/15 Stop Date: 01/06/15 Status: OrderedRobitussin-AC oral syrup 10 mL, PO, Q6H, as needed for cough, # 200 mL, 0 Refill(s) Start Date: 01/02/15 Stop Date: 01/07/15 Status: Ordered Results URINE CHEM Most recent to oldest [Reference Range]: 1 U Preg [Negative] Negative (01/02/15 12:58 AM) Medications Administered During Your Visit No data available for this section Immunizations No data available for this section Social History Social History Type Response Smoking Status Former smoker, Type: Cigarettes, Lives with someone who smokes, Cigarette Smoking Last 365 Days No, Reg Smoking Cessation Counseling No
--- OUTSIDE RECORDS SUMMARY | 2018-05-24 08:48 | XMS REPORT | Summary of Care ---
:1990 Author Organization [facility] [place] [facility] Address [address] [place], [place] [address]- Encounter HQ Julissar_ileana(FIN) [id number] Date(s): 05/06/16 - 05/06/16 [facility] [place] [facility] [address] [place] [address]- Discharge Disposition: Elopement Attending Physician: Devan Diallo DO Vital Signs Most recent to oldest [Reference Range]: 1 Height 162.56 cm (05/06/16 8:38 PM) Temperature Oral [96.4-99.1 DegF] 98.4 DegF (05/06/16 8:38 PM) Blood Pressure [90-140/60-90 mmHg] 142/86 mmHg *HI* (05/06/16 8:38 PM) Respiratory Rate [14-20 BRMIN] 18 BRMIN (05/06/16 8:38 PM) Peripheral Pulse Rate [60-100 bpm] 84 bpm (05/06/16 8:38 PM) Weight 84.545 kg (05/06/16 8:38 PM) Body Mass Index 31.99 m2 (05/06/16 8:38 PM) Problem List Condition Effective Dates Status Health Status Informant Abdominal pain(Confirmed) Active Diarrhea(Confirmed) Active Nausea(Confirmed) Active Ovarian cyst(Confirmed) Active Pneumonia(Confirmed) Resolved Allergies, Adverse Reactions, Alerts Substance Reaction Severity Status NKDA Active Medications No data available for this section Results No data available for this section [...]
--- OUTSIDE RECORDS SUMMARY | 2018-05-24 08:48 | XMS REPORT | Summary of Care ---
:1990 Author Organization [facility] Address [address], [place] [address]- Encounter HQ Edward(TIMMY) [id number] Date(s): 01/26/16 - 01/26/16 [facility] [address] [place] [address]- Discharge Diagnosis: Streptococcal pharyngitis Discharge Disposition: Home Attending Physician: Erum Lara MD Vital Signs Most recent to oldest [Reference Range]: 1 2 Height 162.56 cm (01/26/16 2:29 PM) Temperature Oral [96.4-99.1 DegF] 99 DegF 99.2 DegF (01/26/16 4:06 PM) *HI* (01/26/16 2:29 PM) Blood Pressure [90-140/60-90 mmHg] 138/84 mmHg 142/88 mmHg (01/26/16 4:06 PM) *HI* (01/26/16 2:29 PM) Respiratory Rate [14-20 BRMIN] 16 BRMIN 18 BRMIN (01/26/16 4:06 PM) (01/26/16 2:29 PM) Peripheral Pulse Rate [60-100 bpm] 88 bpm 92 bpm (01/26/16 4:06 PM) (01/26/16 2:29 PM) Weight 82.727 kg (01/26/16 2:29 PM) Body Mass Index 31.31 m2 (01/26/16 2:29 PM) Problem List Condition Effective Dates Status Health Status Informant Abdominal pain(Confirmed) Active Diarrhea(Confirmed) Active Nausea(Confirmed) Active Ovarian cyst(Confirmed) Active Pneumonia(Confirmed) Resolved Allergies, Adverse Reactions, Alerts Substance Reaction Severity Status NKDA Active Medications clindamycin 900 mg, Route: IVPB, ONCE, Dosing Weight 82.727, kg, Priority: STAT, Start date : 01/26/16 14:41:00, Stop date: 01/26/16 14:41:00 Start Date: 01/26/16 Stop Date: 01/26/16 Status: Completeddexamethasone 10 mg, Route: IV, ONCE, Dosing Weight 82.727, kg, Priority: STAT, Start date: 14:41:00, Stop date: 01/26/16 14:41:00 Start Date: 01/26/16 Stop Date: 01/26/16 Status: CompletedMotrin 800 mg oral tablet 800 mg=1 tab, PO, Q8H, PRN Pain, Take with food, # 30 tab, 0 Refill(s) Start Date: 01/26/16 Status: OrderedNS (Bolus) IV 1,000 mL, 1,000 ml/hr, Infuse Over: 1 hr, Route: IV, ONCE, Priority: STAT, Dosing Weight 82.727 kg, Start date: 01/26/16 14:41:00, Duration: 1 doses or times, Stop date: 01/26/16 14:41:00 Start Date: 01/26/16 Stop Date: 01/26/16 Status: Completedpenicillin V potassium 500 mg oral tablet 500 mg=1 tab, PO, BID, X 10 day, # 20 tab, 0 Refill(s) Start Date: 01/26/16 Stop Date: 02/05/16 Status: OrderedpredniSONE 20 mg oral tablet 40 mg=2 tab, PO, Daily, X 3 day, # 6 tab, 0 Refill(s) Start Date: 01/26/16 Stop Date: 01/29/16 Status: Ordered Results No data available for this section [...]
[2018-05-24 09:45] LABS: Urine Blood TRACE (NEG); Urine Glucose NEGATIVE (NEG); Urine Protein NEGATIVE (NEG); Urine Specific Gravity 1.025 (1.005-1.030)
[2018-05-24] MEDS ORDERED: CEFTRIAXONE/SWI 1gm 1 GM/10 ML SYR ONE (10:00)
[2018-05-24] MEDS ORDERED: NA CHLORIDE 0.9% 1,000 ML ONE (10:00)
[2018-05-24 10:07] LABS: Absolute Lymphocytes (CBC) 4.1 K/uL (0.7-4.9); Absolute Monocytes 0.7 K/uL (0.1-1.3); Absolute Neutrophil 8.1 K/uL (1.8-8.0); Basophils % 0.3 % (0-1.3); Eosinophils % 2.6 % (0-4.4); Hematocrit 37.7 % (36.0-45.0); Lymphocytes % 30.9 % (15.3-44.8); MCH 28.4 pg (27.0-35.0); MCV 87.8 fL (80-100); MPV 8.1 fL (7.6-11.3); Monocytes % 5.6 % (3.3-12.3); RBC Red Blood Cell Count 4.29 M/uL (3.86-4.86)
--- NOTE | 2018-05-24 10:07 | RAD REPORT ---
EXAM DESCRIPTION: US - Transvaginal OB - 05/24/2018 9:46 am CLINICAL HISTORY: with abdominal pain COMPARISON: May 06, 2018 FINDINGS: The uterus measures 9 x 5 x 7 centimeters. A gestational sac is present within the endome trium. Within this is a yolk sac and pole with a crown-rump length 0.8 centimeters. Cardiac act ivity 124 beats per minute. Small subchorionic bleed is seen. The ovaries are normal in size and echotexture. No significant free fluid is seen. IMPRESSION: Single live intrauterine with an estimated gestational age 6 weeks 5 days KARIN 01/12/2019 Small subchorionic bleed
--- NOTE | 2018-05-24 10:37 | EDPHYS ---
Physician Documentation [facility] Name: Iva Frye Age: 28 yrs Sex: Female : 1990 Arrival Date: 05/24/2018 Time: 08:45 Bed 6 Private MD: out of town, doctor ED Physician Lv Martinez HPI: 05/24 09:17 This 28 yrs old Female presents to ER via Wheelchair with complaints of claudia Abdominal Pain, Back Pain, 5 wks . 09:17 This 28 yrs old Female presents to ER via Wheelchair with complaints of claudia Abdominal Pain, Back Pain, 5 wks . 09:18 This 28 yrs old Female presents to ER via Wheelchair with complaints of claudia Abdominal Pain, Back Pain, 5 wks . 09:17 The patient presents with pain that is acute. claudia 09:18 The patient presents with abdominal pain in the left lower quadrant. Onset: The claudia symptoms/episode began/occurred 4 day(s) ago. The estimated gestational age is 6 weeks. REGISTER IN CHANCERY: 08:59 LMP 04/02/2018 iw 09:18 1, Full Term 0, Premature 0, 0, Living 0 claudia Historical: - Allergies: 09:00 NKA; iw - Home Meds: 09:00 None [Active]; iw - PMHx: 09:00 Depression; iw - PSHx: 09:00 None; iw - Immunization history:: Adult Immunizations not up to date. - Ebola Screening: : Patient negative for fever greater than or equal to 101.5 degrees Fahrenheit, and additional compatible Ebola Virus Disease symptoms Patient denies exposure to infectious person Patient denies travel to an Ebola-affected area in the 21 days before illness onset No symptoms or risks identified at this time. - Family history:: not pertinent. - Social history:: Smoking status: unknown. ROS: 09:18 Constitutional: Negative for fever, chills, and weight loss, Eyes: Negative for injury, claudia pain, redness, and discharge, ENT: Negative for injury, pain, and discharge, Neck: Negative for injury, pain, and swelling, Cardiovascular: Negative for chest pain, palpitations, and edema, Respiratory: Negative for shortness of breath, cough, wheezing, and pleuritic chest pain, Back: Negative for injury and pain, : Negative for injury, bleeding, discharge, and swelling, MS/Extremity: Negative for injury and deformity, Skin: Negative for injury, rash, and discoloration, Neuro: Negative for headache, weakness, numbness, tingling, and seizure, Psych: Negative for depression, anxiety, suicide ideation, homicidal ideation, and hallucinations, Allergy/Immunology: Negative for hives, rash, and allergies, Endocrine: Negative for neck swelling, polydipsia, polyuria, polyphagia, and marked weight changes, Hematologic/Lymphatic: Negative for swollen nodes, abnormal bleeding, and unusual bruising. 09:18 Abdomen/GI: Positive for abdominal pain, of the left lower quadrant. Exam: 09:18 Constitutional: This is a well developed, well nourished patient who is awake, alert, claudia and in no acute distress. Head/Face: Normocephalic, atraumatic. Eyes: Pupils equal round and reactive to light, extra-ocular motions intact. Lids and lashes normal. Conjunctiva and sclera are non-icteric and not injected. Cornea within normal limits. Periorbital areas with no swelling, redness, or edema. ENT: Nares patent. No nasal discharge, no septal abnormalities noted. Tympanic membranes are normal and external auditory canals are clear. Oropharynx with no redness, swelling, or masses, exudates, or evidence of obstruction, uvula midline. Mucous membranes moist. Neck: Trachea midline, no thyromegaly or masses palpated, and no cervical lymphadenopathy. Supple, full range of motion without nuchal rigidity, or vertebral point tenderness. No Meningismus. Chest/axilla: Normal chest wall appearance and motion. Nontender with no deformity. No lesions are appreciated. Cardiovascular: Regular rate and rhythm with a normal S1 and S2. No gallops, murmurs, or rubs. Normal PMI, no JVD. No pulse deficits. Respiratory: Lungs have equal breath sounds bilaterally, clear to auscultation and percussion. No rales, rhonchi or wheezes noted. No increased work of breathing, no retractions or nasal flaring. Back: No spinal tenderness. No costovertebral tenderness. Full range of motion. Female : Normal external genitalia. Skin: Warm, dry with normal turgor. Normal color with no rashes, no lesions, and no evidence of cellulitis. MS/ Extremity: Pulses equal, no cyanosis. Neurovascular intact. Full, normal range of motion. Neuro: Awake and alert, GCS 15, oriented to person, place, time, and situation. Cranial nerves II-XII grossly intact. Motor strength 5/5 in all extremities. Sensory grossly intact. Cerebellar exam normal. Normal gait. Psych: Awake, alert, with orientation to person, place and time. Behavior, mood, and affect are within normal limits. 09:18 Abdomen/GI: Inspection: abdomen appears normal, Bowel sounds: normal, Palpation: mild abdominal tenderness, in the left lower quadrant. Vital Signs: 08:59 BP 137 / 75; Pulse 76; Resp 16 S; Temp 98.2; Pulse Ox 100% on R/A; Weight 107.5 kg; iw Height 5 ft. 4 in. (162.56 cm); Pain 6/10; 10:10 BP 122 / 62; Pulse 89; Resp 16 S; Pulse Ox 100% on R/A; Pain 6/10; aa5 08:59 Body Mass Index 40.68 (107.50 kg, 162.56 cm) iw MDM: 08:53 Patient medically screened. [facility] 09:18 Data reviewed: vital signs, nurses notes, lab test result(s), radiologic studies, claudia ultrasound. 05/24 09:14 Order name: Quantitative Hcg [facility] 05/24 09:14 Order name: Abo/rh Typing [facility] 05/24 09:14 Order name: Basic Metabolic Panel [facility] 05/24 09:14 Order name: CBC with Diff; Complete Time: 10:36 [facility] 05/24 09:16 Order name: Urine Culture [facility] 05/24 09:26 Order name: Urine Dipstick--Ancillary (enter results); Complete Time: 09:56 em1 05/24 09:00 Order name: Urine Dipstick-Ancillary (obtain specimen); Complete Time: 09:13 05/24 09:00 Order name: Urine Test (obtain specimen); Complete Time: 09:13 05/24 09:14 Order name: IV Saline Lock; Complete Time: 10:04 [facility] 05/24 09:14 Order name: Labs collected and sent; Complete Time: 10:04 [facility] 05/24 09:14 Order name: US Transvaginal Ob; Complete Time: 10:36 [facility] 05/24 09:26 Order name: Urine --Ancillary (enter results); Complete Time: 09:56 em1 05/24 09:14 Order name: NPO; Complete Time: 10:04 claudia Administered Medications: 10:04 Drug: NS 0.9% 1000 ml Route: IV; Rate: 1 bolus; Site: right antecubital; aa5 11:00 Follow up: IV Status: Completed infusion aa5 10:04 Drug: Rocephin - (cefTRIAXone) 1 grams Route: IVPB; Infused Over: 30 mins; Site: right aa5 antecubital; 10:15 Follow up: IV Status: Completed infusion iw Disposition: 05/24/18 10:36 Discharged to Home. Impression: Urinary tract infection, site not specified, related conditions, unspecified, first trimester. - Condition is Stable. - Discharge Instructions: Urinary Tract Infection, First Trimester of , [id number]-[id number]-Kivf, Urinary Tract Infection, Vljg-qt-Qkpy, First Trimester of , Antibiotic Use, Nccl-rg-Bjfs, Pelvic Rest. - Prescriptions for Vitamin 27- 0.8 mg Oral Tablet - take 1 tablet by ORAL route once daily; 30 tablet. Macrobid 100 mg Oral Capsule - take 1 capsule by ORAL route every 12 hours for 7 days; 14 capsule. - Medication Reconciliation Form, Thank You Letter, Antibiotic Education, Prescription Opioid Use form. - Follow up: Private Physician; When: 2 - 3 days; Reason: Recheck today's complaints, Continuance of care, Re-evaluation by your physician. - Problem is new. - Symptoms have improved. Signatures: Dispatcher [employer] Lv Prabhakar MD MD cha Williams, Irene, RN RN Emilia Collins RN RN aa5 Corrections: (The following items were deleted from the chart) 11:03 10:36 05/24/2018 10:36 Discharged to Home. Impression: Urinary tract infection, site iw not specified; related conditions, unspecified, first trimester. Condition is Stable. Discharge Instructions: Urinary Tract Infection, First Trimester of , [id number]-[id number], Urinary Tract Infection, Dhzv-ox-Ccmh, First Trimester of , Antibiotic Use, Eerk-mp-Olrd, Pelvic Rest. Prescriptions for Vitamin 27-0.8 mg Oral Tablet - take 1 tablet by ORAL route once daily; 30 tablet, Macrobid 100 mg Oral Capsule - take 1 capsule by ORAL route every 12 hours for 7 days; 14 capsule. and Forms are Medication Reconciliation Form, Thank You Letter, Antibiotic Education, Prescription Opioid Use. Follow up: Private Physician; When: 2 - 3 days; Reason: Recheck today's complaints, Continuance of care, Re-evaluation by your physician. Problem is new. Symptoms have improved. claudia
--- NOTE | 2018-05-24 10:37 | ER ---
Nurse's Notes [facility] Name: Iva Frye Age: 28 yrs Sex: Female : 1990 Arrival Date: 05/24/2018 Time: 08:45 Bed 6 Private MD: out of town, doctor Diagnosis: Urinary tract infection, site not specified; related conditions, unspecified, first trimester Presentation: 05/24 08:57 Presenting complaint: Patient states: pt c/o LLQ pain and low back pain since May 18, iw is approx 5 weeks , is due to see sander portable machine on June 02, denies vaginal bleeding, also has pain with urination. 08:57 Method Of Arrival: Wheelchair iw 09:00 Transition of care: patient was not received from another setting of care. Onset of iw symptoms was May 18, 2018. Risk Assessment: Do you want to hurt yourself or someone else? Patient reports no desire to harm self or others. Initial Sepsis Screen: Does the patient meet any 2 criteria? No. Patient's initial sepsis screen is negative. Does the patient have a suspected source of infection? No. Patient's initial sepsis screen is negative. Care prior to arrival: None. 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 - Ebola Screening: : Patient negative for fever greater than or equal to 101.5 degrees Fahrenheit, and additional compatible Ebola Virus Disease symptoms Patient denies exposure to infectious person Patient denies travel to an Ebola-affected area in the 21 days before illness onset No symptoms or risks identified at this time. - Family history:: not pertinent. - Social history:: Smoking status: unknown. Screenin:05 Abuse screen: Denies threats or abuse. Nutritional screening: No deficits noted. aa5 Tuberculosis screening: No symptoms or risk factors identified. Fall Risk None identified. Assessment: 09:05 General: Appears comfortable, Behavior is calm, cooperative. Pain: Complains of pain in aa5 left lower quadrant Pain does not radiate. Pain currently is 6 out of 10 on a pain scale. Quality of pain is described as crampy, Pain began 2-3 days ago. Is continuous. Neuro: Level of Consciousness is awake, alert, obeys commands, Oriented to person, place, time, situation. Cardiovascular: Heart tones S1 S2 present Rhythm is regular. Respiratory: Airway is patent Respiratory effort is even, unlabored, Respiratory pattern is regular, symmetrical, Breath sounds are clear bilaterally. GI: Abdomen is round non-distended, Bowel sounds present X 4 quads. Abd is soft and non tender X 4 quads. Reports nausea, vomiting, since 1 week ago. : Reports burning with urination, Denies vaginal bleeding. EENT: No signs and/or symptoms were reported regarding the EENT system. Derm: Skin is pink, warm \T\ dry. Musculoskeletal: Range of motion: intact in all extremities. 09:48 Reassessment: Pt back from US, will insert IV now. . aa5 10:35 Reassessment: Patient and/or family updated on plan of care and expected duration. Pain aa5 level reassessed. Patient is alert, oriented x 3, equal unlabored respirations, skin warm/dry/pink. 10:35 Pain: Pain currently is 6 out of 10 on a pain scale. aa5 Vital Signs: 08:59 BP 137 / 75; Pulse 76; Resp 16 S; Temp 98.2; Pulse Ox 100% on R/A; Weight 107.5 kg; iw Height 5 ft. 4 in. (162.56 cm); Pain 6/10; 10:10 BP 122 / 62; Pulse 89; Resp 16 S; Pulse Ox 100% on R/A; Pain 6/10; aa5 08:59 Body Mass Index 40.68 (107.50 kg, 162.56 cm) iw ED Course: 08:45 Patient arrived in ED. mr 08:46 out of town, doctor is Private Physician. mr 08:53 Lv Martinez MD is Attending Physician. claudia 08:59 Arm band placed on. iw 09:00 Triage completed. iw 09:01 Emilia Espinal, RN is Primary Nurse. aa5 09:05 Patient has correct armband on for positive identification. Placed in gown. Bed in low aa5 position. Call light in reach. Side rails up X2. 09:20 Patient taken to ultrasound. hr 09:46 Ultrasound completed. Patient tolerated well. Patient moved back from ultrasound. hr 09:47 US Transvaginal Ob In Process Unspecified. EDMS 09:50 Initial lab(s) drawn, by me, sent to lab. Inserted saline lock: 20 gauge in right aa5 antecubital area, using aseptic technique. Blood collected. 10:35 No provider procedures requiring assistance completed. aa5 11:02 IV discontinued, intact, bleeding controlled, No redness/swelling at site. Pressure iw dressing applied. Administered Medications: 10:04 Drug: NS 0.9% 1000 ml Route: IV; Rate: 1 bolus; Site: right antecubital; aa5 11:00 Follow up: IV Status: Completed infusion aa5 10:04 Drug: Rocephin - (cefTRIAXone) 1 grams Route: IVPB; Infused Over: 30 mins; Site: right aa5 antecubital; 10:15 Follow up: IV Status: Completed infusion iw Outcome: 10:36 Discharge ordered by . claudia 11:02 Discharged to home ambulatory, with friend. iw 11:02 Condition: good 11:02 Discharge instructions given to patient, Instructed on discharge instructions, follow up and referral plans. medication usage, Demonstrated understanding of instructions, follow-up care, medications, Prescriptions given X 2. 11:03 Patient left the ED. iw Signatures: Dispatcher [employer] Lv Prabhakar MD MD cha Rivera, Maria mr Branden, Angle hr Socorro Adam, HERRERA SILVERMAN Emilia Espinal RN RN aa5
[2018-05-24 10:49] LABS: BUN Blood Urea Nitrogen 6 mg/dL (7-18); Bicarbonate 25 mmol/L (21-32); Glucose Level 106 mg/dL (74-106); HCG, Quantitative 16029 mIU/mL (1-3); Potassium 3.6 mmol/L (3.5-5.1); Sodium Level 135 mmol/L (136-145)
== END 2018-05-24 11:03 | disposition home or self-care (01) ==
LOC: ER 08:41
DX: O23.41 Unspecified infection of urinary tract in pregnancy, first trimester (principal); Z3A.01 Less than 8 weeks gestation of pregnancy
CPT/HCPCS: 36415; 76817; 80048; 81003; 81025; 84702; 85025; 86900; 86901; 87086; 87088; 96361; 96374; 99284; J0696; J7030

== ENCOUNTER 2018-07-19 00:43 | Emergency (ER) | payer OTHER ==
--- OUTSIDE RECORDS SUMMARY | 2018-07-19 00:48 | XMS REPORT | CCD ---
:1990 Author Organization [facility] Care Team Providers Name Role Phone Lucy [...] values reflect the clinical guidelines of the [place] [employer].HEMATOLOGY Most recent to oldest [Reference [...]
--- OUTSIDE RECORDS SUMMARY | 2018-07-19 00:48 | XMS REPORT | Continuity of Care Document ---
:1990 Author Organization Interface Problems Problem Status Onset Classification Date Comments Source Date Reported NIPT Active 06/30/20 [facility] [address] SENT Active 06/22/20 [facility] [place] RIGHT HAND Active 12/07/19 [facility] INJURY 18 [place] CHEST PAIN Active 05/06/20 16 [place] Discharge 02/15/20 02/18/2016 Diagnosis: 16 [facility] Chronic cough THROAT SWELLING Active 02/15/20 16 [place] Discharge 01/26/20 01/29/2016 Diagnosis: 16 [facility] Streptococcal pharyngitis TONSILS Active 01/26/20 16 [facility] [...] Problem 05/09/2016 [facility] Nausea Active Problem 05/09/2016 [facility] Ovarian cyst Active Problem 05/09/2016 [facility] Pneumonia Resolved Problem 05/09/2016 [facility] Abdominal pain Active Problem 12/12/2012 [facility] Diarrhea Active Problem 12/12/2012 [facility] Nausea Active Problem 12/12/2012 [facility] Ovarian cyst Active Problem 12/12/2012 [facility] Precordial pain Active Diagnosis 10/12/2016 Lucinda Olsondhruv Medications Medication Details Route Status Patient Ordering Order Source Instructions Provider Date benzonatate 100 100 mg=1 cap, Active MG Oral Capsule PO, TID, PRN 2015 [facility] [Tessalon Perltheodore] Cough, X 7 day, # 21 cap, 0 Refill(s) Acetaminophen 300 2 tab, Route: Inactive MG / Codeine PO, Drug Form: 2015 [facility] Phosphate 30 MG TAB, Dosing Oral Tablet Weight 83.636, [Tylenol with kg, ONCE, STAT, Codeine #3] Start date: 02/15/16 1:15:00, Stop date: 02/15/16 1:15:00 Ibuprofen 800 MG 800 mg=1 tab, Active Oral Tablet PO, Q8H, PRN 2015 [facility] [Motrin] Pain, Take with food, # 30 tab, 0 Refill(s) predniSONE 20 mg 40 mg=2 tab, Active oral tablet PO, Daily, X 3 2015 day, # 6 tab, 0 Refill(s) Penicillin V 500 mg=1 tab, Active Potassium 500 MG PO, BID, X 10 2015 [facility] Oral Tablet day, # 20 tab, 0 Refill(s) Clindamycin 900 mg, Route: Inactive IVPB, ONCE, 2015 [facility] Dosing Weight 82.727, kg, Priority: STAT, Start date: 01/26/16 14:41:00, Stop date: 01/26/16 14:41:00 Dexamethasone 10 mg, Route: Inactive IV, ONCE, 2015 [facility] Dosing Weight 82.727, kg, Priority: STAT, Start date: 01/26/16 14:41:00, Stop date: 01/26/16 14:41:00 Sodium Chloride 1,000 mL, 1,000 Inactive 0.154 MEQ/ML ml/hr, Infuse 2015 [facility] Injectable Over: 1 hr, Solution Route: IV, ONCE, Priority: STAT, Dosing Weight 82.727 kg, Start date: 01/26/16 14:41:00, Duration: 1 doses or times, Stop date: 01/26/16 14:41:00 Famotidine 20 MG 20 mg=1 tab, Active Oral Tablet PO, BID, # 60 2014 [facility] tab, 0 Refill(s) Morphine 2 mg, Route: Inactive IVP, Drug form: 2014 [facility] INJ, ONCE, Dosing Weight 86.364, kg, Priority: STAT, Start date: 08/10/15 19:15:00, Stop date: 08/10/15 19:15:00 Ondansetron 4 mg, Route: Inactive IVP, ONCE, 2014 [facility] Dosing Weight 86.364, kg, Priority: STAT, Start date: 08/10/15 16:39:00, Stop date: 08/10/15 16:39:00 GI cocktail 30 mL, Route: Inactive PO, Dosing 2014 [facility] Weight 86.364, kg, ONCE, STAT, Start date: 08/10/15 16:39:00, Stop date: 08/10/15 16:39:00 Famotidine 20 mg, Route: Inactive IVP, ONCE, 2014 [facility] Dosing Weight 86.364, kg, Priority: STAT, Start date: 08/10/15 16:39:00, Stop date: 08/10/15 16:39:00 Saline Flush 0.9% 10 mL, Route: Inactive IVP, Drug Form: 2014 [facility] INJ, Dosing Weight 86.364, kg, PRN, PRN Line Flush, Start date: 08/10/15 16:39:00, Duration: 30 day, Stop date: 09/09/15 16:38:00Notes: (Same as: BD Posiflush) Sodium Chloride 1,000 mL, Inactive 0.154 MEQ/ML Infuse Over: 1 2014 [facility] Injectable hr, Route: IV, Solution ONCE, Priority: STAT, Dosing Weight 86.364 kg, Start date: 08/10/15 16:39:00, Duration: 1 doses or times, Stop date: 08/10/15 16:39:00 Robitussin-AC 10 mL, PO, Q6H, Active oral syrup as needed for 2014 [facility] cough, # 200 mL, 0 Refill(s) predniSONE 50 mg 50 mg=1 tab, Active oral tablet PO, Daily, # 4 2014 tab, 0 Refill(s) homatropine 5 mL, Route: Inactive methylbromide 0.3 PO, Drug Form: 2014 MG/ML / SYRP, Dosing Hydrocodone Weight 88.636, Bitartrate 1 kg, ONCE, Start MG/ML Oral date: 01/02/15 Solution 0:00:00, Stop [Hycodan] date: 01/02/15 0:00:00Notes: (Same as: Hycodatwyla, Hydromet) Prednisone 60 mg, 3 tab, Inactive Route: PO, Drug 2014 [facility] form: TAB, ONCE, Dosing Weight 88.636, kg, Priority: STAT, Start date: 01/02/15 0:00:00, Stop date: 01/02/15 0:00:00Notes: Take with food. Albuterol 0.83 2.49 mg, 3 mL, No Longer MG/ML Inhalant Route: NEB, Active 2014 [facility] Solution Drug form: SOLN, ONCE, Dosing Weight 88.636, kg, Priority: STAT, Start date: 01/01/15 23:59:00, Stop date: 01/01/15 23:59:00Notes: SEE RT DOCUMENTATION (Same as: Proventil) Ipratropium 0.5 mg, 2.5 mL, No Longer Route: NEB, Active 2014 [facility] Drug form: SOLN, ONCE, Dosing Weight 88.636, kg, Priority: STAT, Start date: 01/01/15 23:59:00, Stop date: 01/01/15 23:59:00Notes: SEE RT DOCUMENTATION (Same as:Atrovent) Naproxen 500 MG 500 mg=1 tab, Active Oral Tablet PO, BID, Pain, 2013 [Naprosyn] # 30 tab, 0 Refill(s) Cyclobenzaprine 10 mg, PO, TID, Active hydrochloride 10 Muscle Spasm, # 2014 [facility] Oral Tablet 30 tab, 0 [Flexeril] Refill(s) tramadol 1 - 2 tabs, PO, Active hydrochloride 50 Q4-6H, as 2014 [facility] Oral Tablet needed for [Ultram] pain, # 30 tab, 0 Refill(s) Flexeril 10 mg, Route: Inactive PO, ONCE, 2013 [facility] Dosing Weight 81.818, kg, Priority: STAT, Start date: 05/06/14 14:25:00, Stop date: 05/06/14 14:25:00 Acetaminophen 325 1 tab, Route: Inactive MG / Hydrocodone PO, Dosing 2013 [facility] Bitartrate 10 MG Weight 81.818, Oral Tablet kg, ONCE, Start [[place] 10/325] date: 05/06/14 14:25:00, Stop date: 05/06/14 14:25:00 Tylenol 1,000 mg, Inactive Route: PO, 2013 [facility] ONCE, Dosing Weight 76.364, kg, Start date: 03/20/14 12:06:00, Stop date: 03/20/14 12:06:00 Flexeril 5 mg 5 mg, PO, TID, PO Active [facility] oral tablet PRN, 20 tab, 2012 Muscle spasm, Substitution Allowed Ultram 50 mg oral 50 mg, 1 tab, PO Active [facility] tablet PO, Q4H, PRN, 2012 12 tab, pain, Substitution Allowed morphine Sulfate 2 mg, 1 mL, IVP No Longer [facility] Route: IVP, Active 2012 [facility] Drug form: INJ, ONCE, Dosing Weight 76.364, kg, Priority: STAT, Start date: 12/10/12 19:27:00, Stop date: 12/10/12 19:27:00 Saline Flush 0.9% 5 mL, Route: IVP No Longer [facility] IVP, Drug Form: Active 2012 [facility] INJ, Dosing Weight 76.364, kg, PRN, PRN Line Flush, Start date: 12/10/12 19:27:00, Duration: 30 day, Stop date: 01/09/13 19:26:00 Allergies, Adverse Reactions, Alerts Substance Category Reaction Severity Reaction Status Date Comments Source type Reported N.K.D.A. Adverse Info Not Adverse Active Ahmed Reaction Available Reaction 5 Ahmed NKDA Assertion Drug Active [facility] allergy [facility] Immunizations Immunization Date Given Site Status Last Updated Comments Source Results Order Name Results Value Reference Date Interpretation Comments Source Range Preg < Preg < 14wks Patient Name: DEN MAURO 06/22 - [facility] 14wks Single gest /2017 - [place] Single w Transvag : 1990; Age: 28 years Female gest w US Transvag MR: [id number] Read by: Rachel Gilmore MD Dictated Date/time: 06/22/18 14:21 Study: Preg < 14wks Single gest w Transvag US 06/22/2018 1:16 PM CDT Electronically Signed by: Rachel Gilmore MD 06/22/18 14 :25 FINAL REPORT CLINICAL INDICATION: - syncope, fall, 10 weeks . COMPARISON: None TECHNIQUE: Pelvic ultrasound was performed with color and buchanan scale imaging. Transabdominal and transvaginal technique performed. FINDINGS: The anteverted gravid uterus measures 11.6 x 7.1 x 7.7 cm. Single intrauterine with an ovoid gestational sac (mean sac diameter of 5.26 cm). The pole and yolk sac are seen. The estimated gestational age is 10 weeks 6 days by crown-rump length of 3.95 cm. The heart rate is 167 beats per minute. There are no subchorionic hemorrhages noted. The right ovary measures 3.9 x 2.6 x 2.5 cm and the left ovary measures 3.1 x 2.8 x 1.6 cm. There is normal ovarian contour and morphology. Small 1.3 cm right ovarian cyst. Normal bilateral ovarian blood flow. No free pelvic fluid. IMPRESSION: Single viable intrauterine with a gestational age of 11 weeks 2 days (KARIN 01/09/2019). SL: [id number] Wrist Wrist Right wrist 3 views: There is no fracture or dislocation. There are no other significant osseous, articular or soft tissue abnormalities. - [facility] complete complete DX /2017 - [place] IMPRESSION: Read by: Aba Davis MD Dictated Date/time: 12/19/17 12:16 Electronically Signed by: Aba Davis MD 12/19/17 12:17 FINAL REPORT No acute radiographic abnormalities of the right wrist. [id number] Hand 3 Hand 3 views Right hand 3 views: There is no fracture or dislocation. There are no other significant osseous, articular or soft tissue abnormalities. 12/19 - [facility] views DX DX /2017 - [place] IMPRESSION: Read by: Aba Davis MD Dictated Date/time: 12/19/17 12:17 Electronically Signed by: Aba Davis MD 12/19/17 12:17 FINAL REPORT No acute radiographic abnormality of the right hand. [id number] Chest 2 Chest 2 Study: Chest 2 views DX 02/15/2016 1:15 AM CDT 02/14 - views DX views DX - [facility] Patient Name: DEN MAURO MR: [id number] Read by: Neto Virgen MD Dictated Date/time: [...] No acute abnormality as above discussed. SL: [id number] MOLECULAR Source Endocervix 08/11 DIAGNOSTIC APTIMA [facility] *NA* (08/10/15 7:34 PM) MOLECULAR N gonorrhea Negative Negative 08/11 DIAGNOSTIC by Amp Det (APT) *NA* (08/10/15 7:34 PM) MOLECULAR C Negative Negative 08/11 DIAGNOSTIC trachomatis by Amp Det *NA* (APTIMA) (08/10/15 7:34 PM) URINE AND UA Turbidity Clear Clear 08/10 STOOL [facility] (08/10/15 6:03 PM) URINE AND UA pH 5.0 5.0 - 8.0 08/10 STOOL [facility] URINE AND UA Spec Grav 1.012 <=1.030 08/10 STOOL [facility] URINE AND UA Glucose Negative Negative 08/10 [facility] mg/dL mg/dL [facility] URINE AND UA Protein Negative Negative 08/10 [facility] mg/dL mg/dL [facility] URINE AND UA Color Ltyellow 08/10 STOOL [facility] URINE AND UA <=1.0 0.1 - 1.0 08/10 [facility] Urobilinogen mg/dL [facility] URINE AND UA WBC null 0 - 5 08/10 STOOL [facility] URINE AND UA Sq Epi Occasional Few /LPF 08/10 STOOL /LPF [facility] URINE AND UA Leuk Est Negative Negative 08/10 STOOL [facility] (08/10/15 6:03 PM) URINE AND UA Nitrite Negative Negative 08/10 STOOL [facility] (08/10/15 6:03 PM) URINE AND UA Blood Small Negative 08/10 [facility] *ABN* (08/10/15 6:03 PM) URINE AND UA Bili Negative Negative 08/10 STOOL [facility] *NA* (08/10/15 6:03 PM) URINE AND UA Ketones Negative Negative 08/10 [facility] mg/dL mg/dL [facility] URINE AND UA Mucus Few /LPF None Seen 08/10 STOOL /LPF [facility] URINE AND UA RBC 2 /HPF 0 - 2 08/10 [facility] CHEM PANEL A/G Ratio 1.1 0.7 - 1.6 08/10 [facility] CHEM PANEL Globulin 3.5 g/dL 2.0 - 4.0 08/10 [facility] CHEM PANEL B/C Ratio 12 6 - 25 08/10 [facility] CHEM PANEL AGAP 9.7 meq/L 10.0 - 08/10 20.0 /2014 [facility] CHEM PANEL Calcium Lvl 8.8 mg/dL 8.5 - 10.5 08/10 [facility] CHEM PANEL Alk Phos 71 unit/L 39 - 136 08/10 [facility] CHEM PANEL Total 7.4 g/dL 6.4 - 8.4 08/10 [facility] CHEM PANEL Bili Total 0.4 mg/dL 0.2 - 1.3 08/10 [facility] CHEM PANEL Sodium Lvl 137 meq/L 135 - 145 08/10 [facility] CHEM PANEL Potassium 3.7 meq/L 3.5 - 5.1 08/10 [facility] CHEM PANEL Chloride Lvl 103 meq/L 95 - 109 08/10 [facility] CHEM PANEL BUN 10 mg/dL 7 - 22 08/10 [facility] CHEM PANEL Glucose Lvl 90 mg/dL 70 - 99 08/10 [facility] CHEM PANEL CO2 28 meq/L 24 - 32 08/10 [facility] CHEM PANEL Albumin Lvl 3.9 g/dL 3.5 [...] is not recommended in the following populations: [facility] 3m2 Individuals with unstable creatinine concentrations, [...] Creatinine 0.8 mg/dL 0.5 - 1.4 08/10 [facility] CHEM PANEL AST 16 unit/L 0 - 37 08/10 [facility] CHEM PANEL ALT 28 unit/L 0 - 65 08/10 [facility] CHEM PANEL Lipase Lvl 110 unit/L 73 - 393 08/10 [facility] HEMATOLOGY MCV 87.8 fL 80.0 - 08/10 98.0 [facility] HEMATOLOGY MCH 28.5 pg 27.0 - 08/10 31.0 [facility] HEMATOLOGY Platelet 314 K/CMM 133 - 450 08/10 [facility] HEMATOLOGY MCHC 32.4 g/dL 32.0 - 08/10 36.0 [facility] HEMATOLOGY RDW 13.3 % 11.5 - 08/10 MH 14.5 [facility] HEMATOLOGY MPV 7.8 fL 7.4 - 10.4 08/10 [facility] HEMATOLOGY WBC 12.8 K/CMM 3.7 - 10.4 08/10 /2014 [facility] HEMATOLOGY Hgb 11.9 g/dL 12.0 - 08/10 16.0 /2014 [facility] HEMATOLOGY RBC 4.20 M/CMM 4.20 - 08/10 5.40 /2014 [facility] HEMATOLOGY Hct 36.9 % 36.0 - 08/10 MH 48.0 /2014 [facility] HEMATOLOGY Lymphocytes 2.4 K/CMM 1.0 - 5.5 08/10 MH # /2015 [facility] HEMATOLOGY Segs-Bands # 9.5 K/CMM 1.5 - 8.1 08/10 /2014 [facility] HEMATOLOGY Monocytes # 0.8 K/CMM 0.0 - 0.8 08/10 /2014 [facility] HEMATOLOGY Basophils 0.5 % 0.0 - 1.0 08/10 [facility] HEMATOLOGY Lymphocytes 18.7 % 20.0 - 08/10 40.0 /2014 [facility] HEMATOLOGY Eosinophils 1.0 % 0.0 - 4.0 08/10 [facility] HEMATOLOGY Monocytes 5.9 % 2.0 - 12.0 08/10 [facility] HEMATOLOGY Basophils # 0.1 K/CMM 0.0 - 0.2 08/10 [facility] HEMATOLOGY Eosinophils 0.1 K/CMM 0.0 - 0.5 08/10 MH # /2014 [facility] HEMATOLOGY Segs 73.9 % 45.0 - 08/10 75.0 /2014 [facility] Pelvis w Pelvis w Transabdominal and Transvaginal pelvic ultrasound, Aug 10, 2015 07:52:23 PM 08/10 - Transvag Transvag - [facility] and Pelvis Pelvis Doppler US Doppler [...] URINE CHEM U Preg Negative Negative 01/02 (01/02/15 12:58 AM) Chest 2 Chest 2 CHEST, PA AND LATERAL 01/02 [facility] INDICATION: Chest pain. Read by: Benoit Dia MD Dictated Date/time: 01/02/15 00:19 Electronically Signed by: Benoit Dia MD 01/02/15 00:19 FINAL REPORT COMPARISON: Chest 05/06/2014 The heart, mediastinum, lungs, pleural spaces and visualized skeleton are not remarkable. IMPRESSION: Negative chest. SL: 12 URINE AND UA RBC None Seen 0 - 2 05/06 (05/06/14 4:34 PM) URINE AND UA Bacteria None Seen None Seen 05/06 (05/06/14 4:34 PM) URINE AND UA Sq Epi None Seen Few 05/06 (05/06/14 4:34 PM) URINE AND UA WBC 0-2 /HPF 0 - 5 05/06 URINE AND UA Ketones Negative Negative 05/06 [facility] *NA* (05/06/14 4:34 PM) URINE AND UA Glucose Negative Negative 05/06 (05/06/14 4:34 PM) URINE AND UA Protein Negative Negative 05/06 (05/06/14 4:34 PM) URINE AND UA Leuk Est Negative Negative 05/06 (05/06/14 4:34 PM) URINE AND UA Nitrite Negative Negative 05/06 (05/06/14 4:34 PM) URINE AND UA pH 6.5 5.0 - 8.0 05/06 STOOL [facility] URINE AND UA Spec Grav 1.020 <=1.030 05/06 [facility] URINE AND UA Turbidity Clear Clear 05/06 [facility] (05/06/14 4:34 PM) URINE AND UA Color Yellow Yellow 05/06 STOOL [facility] *NA* (05/06/14 4:34 PM) URINE AND UA Bili Moderate 1 Negative 05/06 1Result Comment: Interpret positive bilirubin results with caution. Confirmatory testing not possible due to the unavailability of reagent. Correlation with [facility] *ABN* serum chemistry results recommended. (05/06/14 4:34 PM) URINE AND UA 0.2 EU/dL 0.1 - 1.0 05/06 STOOL Urobilinogen [facility] URINE AND UA Blood Negative Negative 05/06 STOOL [facility] (05/06/14 4:34 PM) URINE CHEM U Preg Negative Negative 05/06 [facility] (05/06/14 4:34 PM) Chest 2 Chest 2 NAME: MAURO , DEN 05/06 - views views /2013 - [place] : 1990 SEX: F Ordering Physician: Miky Marie Read by: Miky Mosley MD Dictated Date/time: 05/06/14 17:21 Electronically Signed by: Miky Mosley MD 05/06/14 17:23 FINAL REPORT Chest 2 views : May 06, 2014 05:15:00 PM. CLINICAL INDICATION: Chest injury. Comparison Examination: Public Health Epidemiologist view from chest CT dated 12/10/2012. FINDINGS: Cardiac and mediastinal structures are normal. No focal infiltrates are identified within the lungs, no edema, no pleural effusions and no pneumothorax. Bones and soft tissues are unremarkable. SL: 14 Spine Spine lumbar NAME: DEN MAURO 05/06 - lumbar 2 2 or 3 views - [facility] or 3 views : 1990 SEX: F Ordering Physician: Miky Marie Read by: Miky Mosley MD Dictated Date/time: 05/06/14 17:23 Electronically Signed by: Miky Mosley MD 05/06/14 17:24 FINAL REPORT Three-view examination of the lumbar spine: May 06, 2014 05:15:00 PM. CLINICAL INDICATION: Back pain. Trauma. Comparison Examination: None. FINDINGS: Five lumbar type vertebral bodies. No fracture or subluxation. SL: 14 Spine Spine NAME: DEN MAURO 05/[birth year] - cervical cervical /2013 minimum of minimum of [...] Ratio 13 6 - 25 12/11 Normal [facility] CHEMISTRY Globulin 3.6 g/dL 2.0 - 4.0 12/11 Normal [facility] CHEMISTRY A/G Ratio 1.1 0.7 - 1.6 12/11 Normal [facility] CHEMISTRY AGAP 12.7 meq/L 10.0 - 12/11 Normal 20.0 [facility] CHEMISTRY Alk Phos 69 unit/L 39 - 136 12/11 Normal [facility] CHEMISTRY Bili Total 0.3 mg/dL 0.2 - 1.3 12/11 Normal [facility] CHEMISTRY Glucose Lvl 97 mg/dL 70 - 99 12/11 Normal 2Interpretive Data: Adult reference range values reflect the clinical guidelines of the [place] [employer]. [facility] CHEMISTRY AST 15 unit/L 0 - 37 12/11 Normal [facility] CHEMISTRY Total 7.5 g/dL 6.4 - 8.4 12/11 Normal MH [facility] CHEMISTRY CO2 25 meq/L 24 - 32 12/11 Normal [facility] CHEMISTRY ALT 22 unit/L 0 - 65 12/11 Normal [facility] CHEMISTRY Albumin Lvl 3.9 g/dL 3.5 - 5.0 12/11 Normal [facility] CHEMISTRY BUN 9 mg/dL 7 - 22 12/11 Normal [facility] CHEMISTRY eGFR 123 12/11 NA 1Result Comment: The eGFR is calculated using the CKD-EPI formula. In most young, healthy individuals the eGFR will be > 90 mL/min/1.73m2. The eGFR declines with age. An eGFR of 60-89 may be normal in mL/min/1. some populations, particularly the elderly, for whom the CKD-EPI formula has not been extensively validated. Use of the eGFR is not recommended in the following populations: [facility] 3m2 Individuals with unstable creatinine concentrations, [...] 8.7 mg/dL 8.5 - 10.5 12/11 Normal [facility] CHEMISTRY Chloride Lvl 108 meq/L 95 - 109 12/11 Normal [facility] CHEMISTRY Potassium 3.7 meq/L 3.5 - 5.1 12/11 Normal [facility] CHEMISTRY Sodium Lvl 142 meq/L 135 - 145 12/11 Normal [facility] CHEMISTRY Creatinine 0.7 mg/dL 0.5 - 1.4 12/11 Normal [facility] HEMATOLOGY MPV 8.1 fL 7.4 - 10.4 12/11 Normal [facility] HEMATOLOGY RDW 13.1 % 11.5 - 12/11 Normal 14. [facility] HEMATOLOGY MCHC 34.4 g/dL 32.0 - 12/11 Normal MH 36.0 /2012 [facility] HEMATOLOGY Platelet 294 K/CMM 133 - 450 12/11 Normal /2012 [facility] HEMATOLOGY WBC 10.1 K/CMM 3.7 - 10.4 12/11 Normal /2012 [facility] HEMATOLOGY Hgb 12.0 g/dL 12.0 - 12/11 Normal MH 16.0 /2012 [facility] HEMATOLOGY MCH 30.2 pg 27.0 - 12/11 Normal MH 31.0 /2012 [facility] HEMATOLOGY MCV 87.7 fL 81.0 - 12/11 Normal 99.0 /2012 [facility] HEMATOLOGY Hct 34.8 % 36.0 - 12/11 LOW MH 48.0 /2012 [facility] HEMATOLOGY RBC 3.97 M/CMM 4.20 - 12/11 LOW MH 5.40 /2012 [facility] HEMATOLOGY Monocytes # 0.5 K/CMM 0.0 - 0.8 12/11 Normal /2012 [facility] HEMATOLOGY Basophils # 0.0 K/CMM 0.0 - 0.2 12/11 Normal /2012 [facility] HEMATOLOGY Eosinophils 0.1 K/CMM 0.0 - 0.5 12/11 Normal /2012 [facility] HEMATOLOGY Lymphocytes 2.1 K/CMM 1.0 - 5.5 12/11 Normal # /2012 [facility] HEMATOLOGY Segs-Bands # 7.3 K/CMM 1.5 - 8.1 12/11 Normal [facility] HEMATOLOGY Basophils 0.4 % 0.0 - 1.0 12/11 Normal [facility] HEMATOLOGY Eosinophils 1.0 % 0.0 - 4.0 12/11 Normal /2012 [facility] HEMATOLOGY Monocytes 5.2 % 2.0 - 12.0 12/11 Normal [facility] HEMATOLOGY Lymphocytes 21.0 % 20.0 - 12/11 Normal 40.0 [facility] HEMATOLOGY Segs 72.4 % 45.0 - 12/11 Normal 75.0 /2012 [facility] URINALYSIS UA <=1.0 0.1 - 1.0 12/11 [facility] Urobilinogen mg/dL /2012 [facility]
*NA*< br/>(12/10 19:28:00) <sup> </sup> URINALYSIS UA Color Ltyellow 12/11 /2012 [facility] URINALYSIS UA Bacteria Occasional /HPF None Seen 12/11 [facility] *NA* (12/10/2012 19:28:00) URINALYSIS UA Mucus Few /LPF None Seen 12/11 NA [facility] *NA* (12/10/2012 19:28:00) URINALYSIS UA WBC null 0 - 5 12/11 Normal [facility] URINALYSIS UA Blood Negative Negative 12/11 Normal [facility] (12/10/2012 19:28:00) URINALYSIS UA Bili Negative Negative 12/11 [facility] *NA* (12/10/2012 19:28:00) URINALYSIS UA Protein Negative mg/dL Negative 12/11 Normal [facility] (12/10/2012 19:28:00) URINALYSIS UA Ketones Negative mg/dL Negative 12/11 [facility] *NA* (12/10/2012 19:28:00) URINALYSIS UA Glucose Negative mg/dL Negative 12/11 [facility] *NA* (12/10/2012 19:28:00) URINALYSIS UA Spec Grav 1.005 <=1.030 12/11 Normal [facility] URINALYSIS UA RBC 1 /HPF 0 - 2 12/11 Normal [facility] URINALYSIS UA Sq Epi Occasional /LPF Few 12/11 NA [facility] *NA* (12/10/2012 19:28:00) URINALYSIS UA Nitrite Negative Negative 12/11 Normal [facility] (12/10/2012 19:28:00) URINALYSIS UA Leuk Est Negative Negative 12/11 Normal [facility] (12/10/2012 19:28:00) URINALYSIS UA pH 7.0 5.0 - 8.0 12/11 Normal [facility] URINALYSIS UA Turbidity Clear Clear 12/11 Normal [facility] (12/10/2012 19:28:00) Vital Signs Vital Sign Value Date Comments Source Respitory Rate 18 05/07/2016 [facility] Heart Rate 84 05/07/2016 [facility] [facility] Systolic (mm Hg) 142 05/07/2016 [facility] Diastolic (mm Hg) 86 05/07/2016 [facility] Height 162.56 cm 05/07/2016 [facility] Temperature Oral (F) 98.4 F 05/07/2016 [facility] Weight 84.545 05/07/2016 [facility] BMI Calculated 31.99 05/07/2016 [facility] Temperature Oral (F) 98.0 F 02/15/2016 [facility] Rate 16 02/15/2016 [facility] Heart Rate 86 02/15/2016 [facility] Systolic (mm Hg) 115 02/15/2016 [facility] Diastolic (mm Hg) 65 02/15/2016 [facility] Temperature Oral (F) 99.2 F 02/15/2016 [facility] Respitory Rate 20 02/15/2016 [facility] Systolic (mm Hg) 140 02/15/2016 [facility] Diastolic (mm Hg) 92 02/15/2016 [facility] Heart Rate 102 02/15/2016 [facility] Weight 83.636 02/15/2016 [facility] BMI Calculated 31.65 02/15/2016 [facility] Height 162.56 cm 02/15/2016 [facility] Respitory Rate 16 01/26/2016 [facility] Systolic (mm Hg) 138 01/26/2016 [facility] Diastolic (mm Hg) 84 01/26/2016 [facility] Heart Rate 88 01/26/2016 [facility] Temperature Oral (F) 99 F 01/26/2016 [facility] Respitory Rate 18 01/26/2016 [facility] Heart Rate 92 01/26/2016 [facility] Systolic (mm Hg) 142 01/26/2016 [facility] Diastolic (mm Hg) 88 01/26/2016 [facility] Temperature Oral (F) 99.2 F 01/26/2016 [facility] Height 162.56 cm 01/26/2016 [facility] Weight 82.727 01/26/2016 [facility] BMI Calculated 31.31 01/26/2016 [facility] Systolic (mm Hg) 116 08/11/2015 [facility] Diastolic (mm Hg) 53 08/11/2015 [facility] Temperature Oral (F) 98.6 F 08/11/2015 [facility] Respitory Rate 18 08/11/2015 [facility] Respitory Rate 19 08/11/2015 [facility] Systolic (mm Hg) 119 08/11/2015 [facility] Diastolic (mm Hg) 75 08/11/2015 [facility] Temperature Oral (F) 98 F 08/11/2015 [facility] Respitory Rate 17 08/10/2015 [facility] Systolic (mm Hg) 120 08/10/2015 [facility] Diastolic (mm Hg) 68 08/10/2015 [facility] Temperature Oral (F) 98 F 08/10/2015 [facility] Height 162.56 cm 08/10/2015 [facility] BMI Calculated 32.68 08/10/2015 [facility] Heart Rate 84 08/10/2015 [facility] Weight 86.364 08/10/2015 [facility] Temperature Oral (F) 99.4 F 01/02/2015 [facility] Heart Rate 100 01/02/2015 [facility] Diastolic (mm Hg) 64 01/02/2015 [facility] Respitory Rate 22 01/02/2015 [facility] Systolic (mm Hg) 124 01/02/2015 [facility] Respitory Rate 22 01/02/2015 [facility] Temperature Oral (F) 99.6 F 01/02/2015 [facility] Systolic (mm Hg) 127 01/02/2015 [facility] Heart Rate 105 01/02/2015 [facility] Respitory Rate 24 01/02/2015 [facility] Diastolic (mm Hg) 80 01/02/2015 [facility] Temperature Oral (F) 99.7 F 01/02/2015 [facility] Heart Rate 116 01/02/2015 [facility] Systolic (mm Hg) 133 01/02/2015 [facility] Diastolic (mm Hg) 80 01/02/2015 [facility] Weight 88.636 01/02/2015 [facility] BMI Calculated 33.54 01/02/2015 [facility] Height 162.56 cm 01/02/2015 [facility] Weight 195 12/12/2014 [facility] Heart Rate 80 12/12/2014 [facility] Diastolic (mm Hg) 72 12/12/2014 [facility] Systolic (mm Hg) 108 12/12/2014 [facility] Diastolic (mm Hg) 77 05/06/2014 [facility] Systolic (mm Hg) 121 05/06/2014 [facility] Respitory Rate 15 05/06/2014 [facility] Temperature Oral (F) 98.6 F 05/06/2014 [facility] Heart Rate 74 05/06/2014 [facility] Weight 81.818 05/06/2014 [facility] Diastolic (mm Hg) 82 05/06/2014 [facility] Systolic (mm Hg) 117 05/06/2014 [facility] Respitory Rate 18 05/06/2014 [facility] Heart Rate 82 05/06/2014 [facility] Temperature Oral (F) 98.5 F 05/06/2014 [facility] Height 162.56 cm 05/06/2014 [facility] BMI Calculated 30.96 05/06/2014 [facility] Diastolic (mm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
[2018-07-19] MEDS ORDERED: ONDANSETRON 4 MG/2 ML VIAL ONE (01:07)
[2018-07-19] MEDS ORDERED: NA CHLORIDE 0.9% 1,000 ML ONE (01:07)
[2018-07-19 01:31] LABS: Absolute Lymphocytes (CBC) 3.3 K/uL (0.7-4.9); Absolute Monocytes 0.8 K/uL (0.1-1.3); Absolute Neutrophil 10.9 K/uL (1.8-8.0); Basophils % 0.2 % (0-1.3); Eosinophils % 1.5 % (0-4.4); Hematocrit 35.8 % (36.0-45.0); Lymphocytes % 21.6 % (15.3-44.8); MCH 30.1 pg (27.0-35.0); MCV 86.8 fL (80-100); MPV 8.3 fL (7.6-11.3); Monocytes % 5.5 % (3.3-12.3); RBC Red Blood Cell Count 4.13 M/uL (3.86-4.86)
[2018-07-19 01:31] LABS: Urine Blood TRACE (NEG); Urine Glucose NEGATIVE (NEG); Urine Protein TRACE (NEG)
[2018-07-19 01:45] LABS: BUN Blood Urea Nitrogen 6 mg/dL (7-18); Bicarbonate 27 mmol/L (21-32); Glucose Level 86 mg/dL (74-106); Potassium 3.2 mmol/L (3.5-5.1); Sodium Level 138 mmol/L (136-145)
[2018-07-19 01:49] LABS: Urine Bacteria <20 /HPF (<20); Urine RBC <5 /HPF (NONE SEEN)
[2018-07-19 01:50] LABS: Urine Culture Reflex Order NOT NEEDED; Urine Mucus LIGHT /HPF (NONE SEEN)
[2018-07-19] MEDS ORDERED: PROMETHAZINE 25 MG/ML VIAL ONE (02:03)
[2018-07-19] MEDS ORDERED: POTASSIUM 25 MEQ EFFERV TAB ONE (02:03)
--- NOTE | 2018-07-19 03:00 | ER ---
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 Transition of care: patient was not received from another setting of care. Onset of symptoms was July 19, 2018. Risk Assessment: Do you want to hurt yourself or someone else? Patient reports no desire to harm self or others. Initial Sepsis Screen: Does the patient meet any 2 criteria? No. Patient's initial sepsis screen is negative. Does the patient have a suspected source of infection? No. Patient's initial sepsis screen is negative. Care prior to arrival: None. 00:59 Method Of Arrival: Ambulatory lp1 00:59 Acuity: TIARRA 3 lp1 Triage Assessment: 01:04 General: Appears uncomfortable. GI: Pt is actively vomiting bile. 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 - Social history:: Smoking status: Patient/guardian denies using tobacco. - Ebola Screening: : No symptoms or risks identified at this time. Screenin:05 Abuse screen: Denies threats or abuse. Denies injuries from another. Nutritional lp1 screening: No deficits noted. Tuberculosis screening: No symptoms or risk factors identified. Fall Risk None identified. Assessment: 01:00 General: Appears in no apparent distress. uncomfortable, Behavior is cooperative, bs1 appropriate for age. Pain: Denies pain. Neuro: Level of Consciousness is awake, alert, obeys commands, Oriented to person, place, time, situation, Appropriate for age Facial symmetry appears normal, Reports dizziness, a syncopal episode. Cardiovascular: Denies chest pain, shortness of breath, Heart tones S1 S2 present Capillary refill < 3 seconds Patient's skin is warm and dry. Respiratory: Airway is patent Trachea midline Respiratory effort is even, unlabored, Respiratory pattern is regular, symmetrical, Breath sounds are clear bilaterally. GI: Abdomen is round non-distended, Bowel sounds present X 4 quads. Reports diarrhea, nausea, vomiting. : No signs and/or symptoms were reported regarding the genitourinary system. EENT: No signs and/or symptoms were reported regarding the EENT system. Derm: Skin is intact, Skin is pink, warm \T\ dry. normal. Musculoskeletal: Circulation, motion, and sensation intact. Capillary refill < 3 seconds, Range of motion: intact in all extremities. 02:15 Reassessment: Patient appears in no apparent distress at this time. Patient and/or bs1 family updated on plan of care and expected duration. Pain level reassessed. Patient is alert, oriented x 3, equal unlabored respirations, skin warm/dry/pink. Informed patient of POC. 02:30 Reassessment: Report given to HERRERA Wan. bs1 03:11 Reassessment: DC instructions given to patient. Patient agree with the POC and to ao follow up with PCP. no questions at this time. Vital Signs: 01:02 BP 150 / 105; Pulse 110; Resp 18; Temp 99.2(O); Pulse Ox 99% on R/A; Weight 98.88 kg; lp1 Height 5 ft. 4 in. (162.56 cm); 01:45 BP 117 / 59; Pulse 73; Resp 17 S; Pulse Ox 100% on R/A; bs1 03:12 BP 106 / 70; Pulse 72; Resp 16; Pulse Ox 99% on R/A; ao 01:02 Body Mass Index 37.42 (98.88 kg, 162.56 cm) lp1 Vitals: 01:54 Heart Tones 152. bs1 ED Course: 00:46 Patient arrived in ED. es 00:52 Felicia Yousif, RN is Primary Nurse. bs1 00:57 Tl Cabral NP is PHCP. pm1 00:57 Huber Barragan MD is Attending Physician. pm1 01:02 Triage completed. lp1 01:02 Arm band placed on left wrist. lp1 02:29 Patient has correct armband on for positive identification. Bed in low position. Call bs1 light in reach. Side rails up X 1. Pulse ox on. NIBP on. 03:10 No provider procedures requiring assistance completed. IV discontinued, intact, ao bleeding controlled, No redness/swelling at site. Pressure dressing applied. Administered Medications: 01:14 Drug: Zofran 4 mg Route: IVP; Site: right antecubital; bs1 02:30 Follow up: Response: No adverse reaction bs1 01:14 Drug: NS 0.9% 1000 ml Route: IV; Rate: 1000 ml; Site: right antecubital; bs1 02:30 Follow up: IV Status: Completed infusion bs1 02:05 Drug: Phenergan 25 mg Route: IVP; Site: right antecubital; bs1 02:30 Follow up: Response: No adverse reaction bs1 02:34 Drug: Potassium Effervescent Tablet 50 mEq Route: PO; bs1 03:13 Follow up: Response: No adverse reaction ao Outcome: 02:59 Discharge ordered by MD. pm1 03:10 Discharged to home ambulatory. ao 03:10 Condition: stable 03:10 Discharge instructions given to patient, Instructed on discharge instructions, follow up and referral plans. Demonstrated understanding of instructions, follow-up care, medications, Prescriptions given X 1. 03:13 Patient left the ED. ao Signatures: Ashanti Hoffman Laura, RN RN lp1 Savage Brunson RN RN ao Marinas, Patrick, HAYDEN DATA PROCESSING CONTROL CLERK pm1 Felicia Yousif, HERRERA SILVERMAN bs1
--- NOTE | 2018-07-19 03:00 | EDPHYS ---
Physician Documentation [facility] Name: vIa Frye Age: 28 yrs Sex: Female : 1990 Arrival Date: 07/19/2018 Time: 00:46 Bed 18 Private MD: ED Physician Huber Barragan HPI: 07/19 01:13 This 28 yrs old Female presents to ER via Ambulatory with complaints of pm1 Vomiting, Diarrhea, 14 weeks preg. 01:13 The patient presents to the emergency department with nausea, vomiting, diarrhea. pm1 Onset: The symptoms/episode began/occurred 4 day(s) ago. Possible causes: . The symptoms are aggravated by nothing. The symptoms are alleviated by nothing. Associated signs and symptoms: Pertinent positives: diarrhea, nausea, vomiting, Pertinent negatives: abdominal pain, dysuria, fever. Severity of symptoms: in the emergency department the symptoms are unchanged. Patient with onset of nausea and vomiting 4 days ago. She was also constipated at that time so she drank half a bottle of prune juice. The prune juice relieved her constipation but resulted in diarrhea. Patient has prescriptions for Zofran, Phenergan, and diclegis. Has taken Zofran and Phenergan without improvement today. Patient reports two episodes of fainting with vomiting on Tuesday and yesterday morning. 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 - Social history:: Smoking status: Patient/guardian denies using tobacco. - Ebola Screening: : No symptoms or risks identified at this time. ROS: 01:13 Constitutional: Negative for fever, chills, and weight loss, Eyes: Negative for injury, pm1 pain, redness, and discharge, ENT: Negative for injury, pain, and discharge, Neck: Negative for injury, pain, and swelling, Cardiovascular: Negative for chest pain, palpitations, and edema, Respiratory: Negative for shortness of breath, cough, wheezing, and pleuritic chest pain. 01:13 Back: Negative for injury and pain. 01:13 MS/Extremity: Negative for injury and deformity, Skin: Negative for injury, rash, and discoloration, Neuro: Negative for headache, weakness, numbness, tingling, and seizure. 01:13 Abdomen/GI: Positive for nausea, vomiting, and diarrhea, Negative for abdominal pain. 01:13 : Negative for urinary symptoms, vaginal bleeding, vaginal discharge. Exam: 01:13 Constitutional: This is a well developed, well nourished patient who is awake, alert, pm1 and in no acute distress. Head/Face: Normocephalic, atraumatic. Eyes: Pupils equal round and reactive to light, extra-ocular motions intact. Lids and lashes normal. Conjunctiva and sclera are non-icteric and not injected. Cornea within normal limits. Periorbital areas with no swelling, redness, or edema. ENT: Nares patent. No nasal discharge, no septal abnormalities noted. Tympanic membranes are normal and external auditory canals are clear. Oropharynx with no redness, swelling, or masses, exudates, or evidence of obstruction, uvula midline. Mucous membranes moist. Neck: Trachea midline, no thyromegaly or masses palpated, and no cervical lymphadenopathy. Supple, full range of motion without nuchal rigidity, or vertebral point tenderness. No Meningismus. Chest/axilla: Normal chest wall appearance and motion. Nontender with no deformity. No lesions are appreciated. Cardiovascular: Regular rate and rhythm with a normal S1 and S2. No gallops, murmurs, or rubs. Normal PMI, no JVD. No pulse deficits. Respiratory: Lungs have equal breath sounds bilaterally, clear to auscultation and percussion. No rales, rhonchi or wheezes noted. No increased work of breathing, no retractions or nasal flaring. 01:13 Back: No spinal tenderness. No costovertebral tenderness. Full range of motion. Skin: Warm, dry with normal turgor. Normal color with no rashes, no lesions, and no evidence of cellulitis. MS/ Extremity: Pulses equal, no cyanosis. Neurovascular intact. Full, normal range of motion. 01:13 Abdomen/GI: Inspection: abdomen appears normal, gravid appearance, is noted, Bowel sounds: normal, Palpation: abdomen is soft and non-tender. 01:13 Neuro: Orientation: is normal, Motor: is normal, moves all fours. Vital Signs: 01:02 BP 150 / 105; Pulse 110; Resp 18; Temp 99.2(O); Pulse Ox 99% on R/A; Weight 98.88 kg; lp1 Height 5 ft. 4 in. (162.56 cm); 01:45 BP 117 / 59; Pulse 73; Resp 17 S; Pulse Ox 100% on R/A; bs1 03:12 BP 106 / 70; Pulse 72; Resp 16; Pulse Ox 99% on R/A; ao 01:02 Body Mass Index 37.42 (98.88 kg, 162.56 cm) lp1 MDM: 01:00 Patient medically screened. pm1 02:57 Data reviewed: vital signs. Data interpreted: Pulse oximetry: on room air is 100 %. pm1 Interpretation: normal. Counseling: I had a detailed discussion with the patient and/or guardian regarding: the historical points, exam findings, and any diagnostic results supporting the discharge/admit diagnosis, lab results, the need for outpatient follow up, to return to the emergency department if symptoms worsen or persist or if there are any questions or concerns that arise at home. 02:57 ED course: Patient passed PO challenge with potassium effervescent PO. Patient feels pm1 better with phenergan. 07/19 01:00 Order name: Basic Metabolic Panel; Complete Time: 01:45 pm07/19 01:00 Order name: CBC with Diff; Complete Time: 01:45 pm07/19 01:21 Order name: Urine Microscopic Only; Complete Time: 01:52 pm07/19 01:26 Order name: Urine Dipstick--Ancillary (enter results); Complete Time: 01:33 ms 07/19 01:28 Order name: Urine --Ancillary (enter results); Complete Time: 01:33 ms 07/19 01:00 Order name: IV Saline Lock; Complete Time: 01:14 pm07/19 01:00 Order name: Labs collected and sent; Complete Time: 01:14 pm1 07/19 01:00 Order name: Urine Dipstick-Ancillary (obtain specimen); Complete Time: 01:14 pm1 07/19 01:18 Order name: FHT's; Complete Time: 01:54 pm1 Administered Medications: 01:14 Drug: Zofran 4 mg Route: IVP; Site: right antecubital; bs1 02:30 Follow up: Response: No adverse reaction bs1 01:14 Drug: NS 0.9% 1000 ml Route: IV; Rate: 1000 ml; Site: right antecubital; bs1 02:30 Follow up: IV Status: Completed infusion bs1 02:05 Drug: Phenergan 25 mg Route: IVP; Site: right antecubital; bs1 02:30 Follow up: Response: No adverse reaction bs1 02:34 Drug: Potassium Effervescent Tablet 50 mEq Route: PO; bs1 03:13 Follow up: Response: No adverse reaction ao Disposition: 03:28 Co-signature as Attending Physician, Huber Barragan MD I agree with the assessment and tw4 plan of care. Attestation: The patient's history, exam findings, diagnostics, and a summary of any interventions or procedures was reviewed in detail with Tl Cabral NP. Disposition: 07/19/18 02:59 Discharged to Home. Impression: Vomiting of , unspecified, Diarrhea, unspecified. - Condition is Stable. - Discharge Instructions: Food Choices to Help Relieve Diarrhea, Adult, Diarrhea, Adult, Nausea and Vomiting, Adult, Morning Sickness. - Prescriptions for Phenergan 25 mg Rectal Suppository - insert 1 suppository by RECTAL route every 6 hours As needed; 12 suppository. - Medication Reconciliation Form, Thank You Letter form. - Follow up: Emergency Department; When: As needed; Reason: Worsening of condition. Follow up: Private Physician; When: 2 - 3 days; Reason: Recheck today's complaints, Continuance of care, Re-evaluation by your physician. - Problem is new. - Symptoms have improved. Signatures: Dispatcher [employer] EDMS Jes Levine RN RN lp1 Savage Brunson RN RN ao Marinas, Patrick, NP MANAGER FIELD pm1 Felicia Yousif RN RN bs1 Huber Barragan MD MD tw4 Corrections: (The following items were deleted from the chart) 03:13 02:59 07/19/2018 02:59 Discharged to Home. Impression: Vomiting of , ao unspecified; Diarrhea, unspecified. Condition is Stable. Forms are Medication Reconciliation Form, Thank You Letter, Antibiotic Education, Prescription Opioid Use. Follow up: Emergency Department; When: As needed; Reason: Worsening of condition. Follow up: Private Physician; When: 2 - 3 days; Reason: Recheck today's complaints, Continuance of care, Re-evaluation by your physician. Problem is new. Symptoms have improved. pm1
== END 2018-07-19 03:13 | disposition home or self-care (01) ==
LOC: ER 00:43
DX: R19.7 Diarrhea, unspecified (principal); O99.342 Other mental disorders complicating pregnancy, second trimester; Z3A.15 15 weeks gestation of pregnancy
CPT/HCPCS: 36415; 80048; 81003; 81015; 81025; 85025; 96361; 96374; 96375; 99284; J2405; J2550; J7030

== ENCOUNTER 2018-08-04 01:23 | Emergency (ER) | payer OTHER ==
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
--- OUTSIDE RECORDS SUMMARY | 2018-08-04 01:27 | XMS REPORT | CCD ---
:1990 Author Organization [facility] Care Team Providers Name Role Phone Lucy [...] values reflect the clinical guidelines of the [employer].HEMATOLOGY Most recent to oldest [Reference [...]
[2018-08-04] MEDS ORDERED: NA CHLORIDE 0.9% 1,000 ML ONE (02:04)
[2018-08-04 02:30] LABS: Absolute Lymphocytes (CBC) 2.4 K/uL (0.7-4.9); Absolute Monocytes 0.7 K/uL (0.1-1.3); Absolute Neutrophil 9.6 K/uL (1.8-8.0); Basophils % 0.2 % (0-1.3); Eosinophils % 1.2 % (0-4.4); Hematocrit 32.1 % (36.0-45.0); Lymphocytes % 18.4 % (15.3-44.8); MCH 30.3 pg (27.0-35.0); MCV 87.4 fL (80-100); MPV 8.6 fL (7.6-11.3); Monocytes % 5.8 % (3.3-12.3); RBC Red Blood Cell Count 3.67 M/uL (3.86-4.86)
[2018-08-04 02:36] LABS: BUN Blood Urea Nitrogen 7 mg/dL (7-18); Bicarbonate 22 mmol/L (21-32); Glucose Level 89 mg/dL (74-106); Potassium 3.5 mmol/L (3.5-5.1); Sodium Level 138 mmol/L (136-145)
--- NOTE | 2018-08-04 03:26 | EDPHYS ---
Physician Documentation [facility] Name: Iva Frye Age: 28 yrs Sex: Female : 1990 Arrival Date: 08/04/2018 Time: 01:24 Bed 5 Private MD: ED Physician Davon Siddiqui HPI: 08/04 01:50 This 28 yrs old Female presents to ER via Ambulatory with complaints of Fall ps1 Injury. 01:50 presenting with abdominal and left knee pain s/p fall down stairs. 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 No VB. + FM. Went down 8 steps hit abdomen cartwheel and hit left knee. No obvious injury. Pain moderate. . 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 - Social history:: Smoking status: Patient/guardian denies using tobacco. - Ebola Screening: : No symptoms or risks identified at this time. ROS: 01:50 Constitutional: Negative for fever, chills, and weight loss, Eyes: Negative for injury, ps1 pain, redness, and discharge, ENT: Negative for injury, pain, and discharge, Cardiovascular: Negative for chest pain, palpitations, and edema, Respiratory: Negative for shortness of breath, cough, wheezing, and pleuritic chest pain, Back: Negative for injury and pain, Skin: Negative for injury, rash, and discoloration, Neuro: Negative for headache, weakness, numbness, tingling, and seizure. 01:50 Abdomen/GI: Positive for abdominal pain, of the umbilical area. 01:50 MS/extremity: Positive for pain, of the left knee. Exam: 01:50 Constitutional: This is a well developed, well nourished patient who is awake, alert, ps1 and in no acute distress. Head/Face: Normocephalic, atraumatic. Eyes: Pupils equal round and reactive to light, extra-ocular motions intact. Lids and lashes normal. Conjunctiva and sclera are non-icteric and not injected. Chest/axilla: Normal chest wall appearance and motion. Nontender with no deformity. No lesions are appreciated. Cardiovascular: Regular rate and rhythm. No gallops, murmurs, or rubs. Normal PMI, no JVD. No pulse deficits. Respiratory: Lungs have equal breath sounds bilaterally, clear to auscultation and percussion. No rales, rhonchi or wheezes noted. No increased work of breathing, no retractions or nasal flaring. Skin: Warm, dry with normal turgor. Normal color with no rashes, no lesions, and no evidence of cellulitis. MS/ Extremity: Pulses equal, no cyanosis. Neurovascular intact. Full, normal range of motion. Neuro: Awake and alert, GCS 15, oriented to person, place, time, and situation. Cranial nerves II-XII grossly intact. Sensory grossly intact. Psych: Awake, alert, with orientation to person, place and time. Behavior, mood, and affect are within normal limits. 01:50 Abdomen/GI: Inspection: abdomen appears normal, Bowel sounds: normal, Palpation: mild abdominal tenderness, in the umbilical area, Point of care US performed at bedside. FAST negative for FF. FHT 160. . Vital Signs: 01:37 BP 131 / 81; Pulse 116; Resp 20; Temp 98.5(TE); Pulse Ox 98% on R/A; Weight 97.98 kg; tl2 Height 5 ft. 4 in. (162.56 cm); Pain 6/10; 02:30 BP 131 / 86; Pulse 94; Resp 18; Pulse Ox 99% ; ea 03:18 BP 131 / 86; Pulse 90; Resp 18; Pulse Ox 100% on R/A; tl2 01:37 Body Mass Index 37.08 (97.98 kg, 162.56 cm) tl2 Aleks Coma Score: 01:37 Eye Response: spontaneous(4). Verbal Response: oriented(5). Motor Response: obeys tl2 commands(6). Total: 15. 02:30 Eye Response: spontaneous(4). Verbal Response: oriented(5). Motor Response: obeys ea commands(6). Total: 15. Trauma Score (Adult): 01:37 Eye Response: spontaneous(1); Verbal Response: oriented(1); Motor Response: obeys tl2 commands(2); Systolic BP: > 89 mm Hg(4); Respiratory Rate: 10 to 29 per min(4); [place] Score: 15; Trauma Score: 12 MDM: 01:58 Patient medically screened. ps1 03:22 Data reviewed: vital signs, nurses notes, lab test result(s), and as a result, I will ps1 discharge patient. ED course: patient completely asymtpomatic. Pt stable for discharge. . 08/04 01:36 Order name: Basic Metabolic Panel; Complete Time: 02:40 ps1 08/04 01:36 Order name: CBC with Diff; Complete Time: 02:33 ps1 08/04 01:36 Order name: Creatinine for Radiology; Complete Time: 02:40 [facility] 08/04 01:36 Order name: Type And Screen; Complete Time: 03:22 ps1 08/04 01:36 Order name: Abo/rh Typing [facility] 08/04 03:31 Order name: Urine Dipstick--Ancillary (enter results) 08/04 01:36 Order name: Labs collected and sent; Complete Time: 02:42 [facility] 08/04 01:36 Order name: Urine Dipstick-Ancillary (obtain specimen); Complete Time: 03:27 [facility] 08/04 01:36 Order name: Knee Left 3 View XRAY [facility] 08/04 03:31 Order name: Urine --Ancillary (enter results) Administered Medications: No medications were administered Disposition: 08/04/18 03:25 Discharged to Home. Impression: Fall (on) (from) other stairs and steps, Pain in left knee, Abdominal pain in . - Condition is Stable. - Discharge Instructions: Knee Pain, Abdominal Pain During , [id number]. - Medication Reconciliation Form, Thank You Letter, Antibiotic Education, Prescription Opioid Use form. - Follow up: Private Physician; When: As needed; Reason: Recheck today's complaints, Continuance of care, Re-evaluation by your physician. Follow up: Emergency Department; When: As needed; Reason: Fever > 102 F, Trouble breathing, Worsening of condition. - Problem is new. - Symptoms are resolved. Signatures: Dispatcher [facility] Katina Govea RN RN tl2 Davon Siddiqui MD MD ps1 Corrections: (The following items were deleted from the chart) 03:40 03:25 08/04/2018 03:25 Discharged to Home. Impression: Fall (on) (from) other stairs tl2 and steps; Pain in left knee; Abdominal pain in . Condition is Stable. Forms are Medication Reconciliation Form, Thank You Letter, Antibiotic Education, Prescription Opioid Use. Follow up: Private Physician; When: As needed; Reason: Recheck today's complaints, Continuance of care, Re-evaluation by your physician. Follow up: Emergency Department; When: As needed; Reason: Fever > 102 F, Trouble breathing, Worsening of condition. Problem is new. Symptoms are resolved. ps1
--- NOTE | 2018-08-04 03:26 | ER ---
Nurse's Notes [facility] Name: Iva Frye Age: 28 yrs Sex: Female : 1990 Arrival Date: 08/04/2018 Time: 01:24 Bed 5 Private MD: Diagnosis: Fall (on) (from) other stairs and steps;Pain in left knee;Abdominal pain in Presentation: 08/04 01:32 Presenting complaint: Patient states: I tripped down the stairs and fell down about 15 tl2 steps, I hit my left knee and landed on my stomach. I'm 16 weeks . Reports mild cramping but denies vaginal bleeding. Care prior to arrival: None. Mechanism of Injury: Fall down 15 steps. Trauma event details: Injury occurred in the [facility]. 01:32 Acuity: TIARRA 3 tl2 01:32 Method Of Arrival: Ambulatory tl2 01:40 Transition of care: patient was not received from another setting of care. Onset of tl2 symptoms was August 04, 2018 at 01:20. Risk Assessment: Do you want to hurt yourself or someone else? Patient reports no desire to harm self or others. Initial Sepsis Screen: Does the patient meet any 2 criteria?. Initial Sepsis Screen: Does the patient have a suspected source of infection? No. Patient's initial sepsis screen is negative. 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 tl2 Trauma Activation: Physician: ED Physician; Name: ; Notified At: 01:27; Arrived At: Physician: General Surgeon; Name: ; Notified At: 01:27; Arrived At: Physician: Radiology; Name: shruthi raymundo; Notified At: 01:27; Arrived At: 01:30 Physician: Respiratory; Name: ; Notified At: 01:27; Arrived At: Physician: Lab; Name: ; Notified At: 01:27; Arrived At: Historical: - Allergies: 01:37 Reglan; tl2 - Home Meds: 01:37 famotidine 20 mg Oral tab [Active]; Zofran (as hydrochloride) 8 mg Oral tab [Active]; tl2 - PMHx: 01:37 Depression; tl2 - PSHx: 01:37 None; tl2 - Immunization history: Last tetanus immunization: unknown. - Social history:: Smoking status: Patient/guardian denies using tobacco. - Ebola Screening: : No symptoms or risks identified at this time. Screenin:37 Abuse screen: Denies threats or abuse. Nutritional screening: No deficits noted. tl2 Tuberculosis screening: No symptoms or risk factors identified. Fall risk At risk due to injury. 01:42 Fall Risk Fall in past 12 months (25 points). tl2 Primary Survey: 01:37 A: Airway: patent, No supplemental oxygen in use on arrival. Breathing/Chest: tl2 Respiratory pattern: regular, Respiratory effort: spontaneous, unlabored, Breath sounds: clear, Chest inspection: symmetrical rise and fall of the chest. Circulation: Pulses: palpable . Skin color: pink. Disability Alert. 02:37 Reassessment Airway Airway Patent Breathing/Chest Respiratory pattern Regular ea Respiratory effort Spontaneous Unlabored Circulation Color [place] Temperature Warm. Secondary Survey: 01:37 HEENT: No deficits noted. Gastrointestinal: Abdomen is soft, non-distended, Palpation tl2 No deficit noted. : Denies vaginal bleeding. Musculoskeletal: Range of motion: limited in left knee. Assessment: 01:32 General: Appears in no apparent distress. uncomfortable, Behavior is cooperative, tl2 appropriate for age, anxious. Pain: Complains of pain in left knee, abdomen. Neuro: Level of Consciousness is awake, alert, obeys commands, Oriented to person, place, time, situation. Cardiovascular: Denies chest pain. Respiratory: Airway is patent Respiratory effort is even, unlabored, Respiratory pattern is regular, symmetrical. GI: Reports lower abdominal pain, upper abdominal pain, cramping, Patient currently denies vomiting. : Denies vaginal bleeding. Derm: Skin is pink, warm \T\ dry. 02:36 Reassessment: Patient and/or family updated on plan of care and expected duration. Pain ea level reassessed. Patient is alert, oriented x 3, equal unlabored respirations, skin warm/dry/pink. 03:39 Reassessment: Patient appears in no apparent distress at this time. Patient and/or tl2 family updated on plan of care and expected duration. Pain level reassessed. Patient is alert, oriented x 3, equal unlabored respirations, skin warm/dry/pink. Pt verbalized understanding of discharge instructions and need for follow up. Vital Signs: 01:37 BP 131 / 81; Pulse 116; Resp 20; Temp 98.5(TE); Pulse Ox 98% on R/A; Weight 97.98 kg; tl2 Height 5 ft. 4 in. (162.56 cm); Pain 6/10; 02:30 BP 131 / 86; Pulse 94; Resp 18; Pulse Ox 99% ; ea 03:18 BP 131 / 86; Pulse 90; Resp 18; Pulse Ox 100% on R/A; tl2 01:37 Body Mass Index 37.08 (97.98 kg, 162.56 cm) tl2 Aleks Coma Score: 01:37 Eye Response: spontaneous(4). Verbal Response: oriented(5). Motor Response: obeys tl2 commands(6). Total: 15. 02:30 Eye Response: spontaneous(4). Verbal Response: oriented(5). Motor Response: obeys ea commands(6). Total: 15. Trauma Score (Adult): 01:37 Eye Response: spontaneous(1); Verbal Response: oriented(1); Motor Response: obeys tl2 commands(2); Systolic BP: > 89 mm Hg(4); Respiratory Rate: 10 to 29 per min(4); Aleks Score: 15; Trauma Score: 12 ED Course: 01:24 Patient arrived in ED. am2 01:26 Davon Siddiqui MD is Attending Physician. ps1 01:32 Katina Govea RN is Primary Nurse. tl2 01:34 Triage completed. tl2 01:37 Patient has correct armband on for positive identification. Bed in low position. Call tl2 light in reach. Side rails up X 1. Adult w/ patient. 01:37 Patient maintains SpO2 saturation greater than 95% on room air. tl2 01:40 Inserted saline lock: 20 gauge in right antecubital area, using aseptic technique. ea Blood collected. 01:42 Thermoregulation: warm blanket given to patient. tl2 01:43 Arm band placed on right wrist. tl2 01:47 X-ray completed. Portable x-ray completed in exam room. Patient tolerated procedure kp1 well. 02:04 Knee Left 3 View XRAY In Process Unspecified. EDMS 03:39 No provider procedures requiring assistance completed. IV discontinued, intact, tl2 bleeding controlled, No redness/swelling at site. Pressure dressing applied. Administered Medications: No medications were administered Intake: 03:40 PO: 0ml; Total: 0ml. tl2 Outcome: 03:25 Discharge ordered by . ps1 03:39 Discharged to home ambulatory, with family. tl2 03:39 Condition: stable 03:39 Discharge instructions given to patient, family, Instructed on discharge instructions, follow up and referral plans. Demonstrated understanding of instructions, follow-up care. 03:40 Patient's length of stay in the Emergency Department was greater than 2 hours. tl2 radiology Patient's length of stay extended due to 03:40 Patient left the ED. tl2 Signatures: Dispatcher [employer] EDMS Katina Govea RN RN tl2 Bozena Hampton am2 Shruthi Vieira kp1 Serenity Camejo RN RN ea Singer, Phillip, MD MD ps1 Corrections: (The following items were deleted from the chart) 03:47 03:39 Patient did not have IV access during this emergency room visit. tl2 tl2
[2018-08-04 04:17] LABS: Urine Blood TRACE (NEG); Urine Glucose NEGATIVE (NEG); Urine Protein 1+ (NEG)
--- NOTE | 2018-08-04 05:54 | RAD REPORT ---
EXAM DESCRIPTION: RAD - Knee Left 3 View - 08/04/2018 2:03 am CLINICAL HISTORY: Left knee pain status post injury FINDINGS: No fracture or dislocation is seen. If the patient continues to have symptoms to suggest an occult fracture, ligamentous or meniscal inju ry then MRI would be recommended
== END 2018-08-04 03:40 | disposition home or self-care (01) ==
LOC: ER 01:23
DX: R10.9 Unspecified abdominal pain (principal); M25.562 Pain in left knee; W10.8XXA Fall (on) (from) other stairs and steps, initial encounter; Y93.9 Activity, unspecified; Y92.9 Unspecified place or not applicable; Z3A.16 16 weeks gestation of pregnancy; Z88.8 Allergy status to other drugs, medicaments and biological substances
CPT/HCPCS: 36415; 80048; 81003; 81025; 85025; 86850; 86900; 86901; 99284; J7030

== ENCOUNTER 2019-03-22 00:50 | Emergency (ER) | payer OTHER ==
--- OUTSIDE RECORDS SUMMARY | 2019-03-22 00:52 | XMS REPORT | Continuity of Care Document ---
:1990 Author Organization Interface Problems Problem Status Onset Classification Date Comments Source Date Reported Precordial Active Diagnosis 10/12/2016 Ahmed pain Ahmed Medications Medication Details Route Status Patient Ordering Order Source Instructions Provider Date Allergies, Adverse Reactions, Alerts Substance Category Reaction Severity Reaction Status Date Comments Source type Reported N.K.D.A. Adverse Info Not Adverse Active Ahmed Reaction Available Reaction 5 Ahmed Immunizations Immunization Date Given Site Status Last Updated Comments Source Results Order Results Value Reference Date Interpretation Comments Source Name Range Vital Signs Vital Sign Value Date Comments Source Weight 195 12/12/2014 Ahmed Ahmed Heart Rate 80 12/12/2014 Ahmed Ahmed Diastolic (mm Hg) 72 12/12/2014 Ahmed Ahmed Systolic (mm Hg) 108 12/12/2014 Ahmed Ahmed Encounters Location Location Encounter Encounter Reason Attending ADM DC Status Source Details Type Number For Provider Date Date Visit Ahmed pt [id number] 12/12 12/12 Lucinda Jane MD, scheduled [id number] Lucinda ROLLE thru Worker [id number] Procedures Procedure Code Date Perfomer Comments Source
--- OUTSIDE RECORDS SUMMARY | 2019-03-22 00:52 | XMS REPORT ---
:1990 [facility] [address] [place] [address] Dr. Dutton [address] [place] [id number] Care Team Providers Name Role Phone Unavailable Unavailable Unavailable Problems This patient has no known problems. Allergies, Adverse Reactions, Alerts This patient has no known allergies or adverse reactions. Medications This patient has no known medications.
--- NOTE | 2019-03-22 01:26 | ER ---
Nurse's Notes [facility] Name: Iva Frye Age: 29 yrs Sex: Female : 1990 Arrival Date: 03/22/2019 Time: 00:51 Bed 14 Private MD: Diagnosis: Manual tooth extraction, uncomplicated Presentation: 03/22 01:02 Presenting complaint: Patient states: I needed to have a root canal but I couldn't ed1 afford it and so I could not take the pain anymore so tonight I just pulled my tooth out. Now it hurts and its swelling. Transition of care: patient was not received from another setting of care. Onset of symptoms was March 21, 2019 at 19:00. Risk Assessment: Do you want to hurt yourself or someone else? Patient reports no desire to harm self or others. Initial Sepsis Screen: Does the patient meet any 2 criteria? No. Patient's initial sepsis screen is negative. Does the patient have a suspected source of infection? No. Patient's initial sepsis screen is negative. Care prior to arrival: None. 01:02 Method Of Arrival: Ambulatory ed1 01:02 Acuity: TIARRA 4 ed1 Triage Assessment: 01:05 General: Appears in no apparent distress. Behavior is calm, cooperative. Pain: ed1 Complains of pain in mouth Pain currently is 9 out of 10 on a pain scale. EENT: Reports pain since pulling out tooth. 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 - Social history:: Smoking status: Patient/guardian denies using tobacco. - Ebola Screening: : Patient negative for fever greater than or equal to 101.5 degrees Fahrenheit, and additional compatible Ebola Virus Disease symptoms Patient denies exposure to infectious person Patient denies travel to an Ebola-affected area in the 21 days before illness onset No symptoms or risks identified at this time. - Family history:: not pertinent. - Hospitalizations: : No recent hospitalization is reported. Screenin:45 Abuse screen: Denies threats or abuse. Nutritional screening: No deficits noted. jb4 Tuberculosis screening: No symptoms or risk factors identified. Fall Risk None identified. Assessment: 01:45 General: Appears in no apparent distress. uncomfortable, Behavior is calm, cooperative, jb4 appropriate for age. Pain: Complains of pain in mouth Pain does not radiate. Pain currently is 8 out of 10 on a pain scale. Neuro: Level of Consciousness is awake, alert, obeys commands, Oriented to person, place, time, situation. Cardiovascular: Patient's skin is warm and dry. Respiratory: Airway is patent Respiratory effort is even, unlabored, Respiratory pattern is regular, symmetrical. GI: No signs and/or symptoms were reported involving the gastrointestinal system. : No signs and/or symptoms were reported regarding the genitourinary system. EENT: No signs and/or symptoms were reported regarding the EENT system. Derm: Skin is intact, Skin is pink, warm \T\ dry. Musculoskeletal: Circulation, motion, and sensation intact. Vital Signs: 01:05 BP 133 / 76; Pulse 83; Resp 20; Temp 97.4; Pulse Ox 99% on R/A; Weight 94.35 kg; Height ed1 5 ft. 4 in. (162.56 cm); Pain 9/10; 01:59 BP 138 / 94; Pulse 80; Resp 16; Pulse Ox 100% on R/A; jb4 01:05 Body Mass Index 35.70 (94.35 kg, 162.56 cm) ed1 ED Course: 00:51 Patient arrived in ED. am2 01:04 Triage completed. ed1 01:05 Arm band placed on left wrist. ed1 01:07 Rony Garcia MD is Attending Physician. rn 01:40 Jama Henson RN is Primary Nurse. jb4 01:45 Patient has correct armband on for positive identification. Bed in low position. Call jb4 light in reach. Side rails up X 1. Pulse ox on. NIBP on. 02:00 No provider procedures requiring assistance completed. Patient did not have IV access jb4 during this emergency room visit. Administered Medications: 01:57 Drug: TORadol 30 mg Route: IM; Site: right gluteus; jb4 02:01 Follow up: Response: No adverse reaction; Medication administered at discharge. jb4 01:57 Drug: [place] 10 mg-325 mg 1 tabs Route: PO; jb4 02:01 Follow up: Response: No adverse reaction; Medication administered at discharge. jb4 Outcome: 01:25 Discharge ordered by . rn 02:00 Discharged to home ambulatory, with friend. jb4 02:00 Condition: stable 02:00 Discharge instructions given to patient, friend, Instructed on discharge instructions, follow up and referral plans. medication usage, Demonstrated understanding of instructions, follow-up care, medications, Prescriptions given X 1. 02:02 Patient left the ED. jb4 Signatures: Rony Garcia MD MD rn Geno Gomez RN RN ed1 Jama Henson RN RN jb4 Bozena Hampton
--- NOTE | 2019-03-22 01:26 | EDPHYS ---
Physician Documentation [facility] Name: Iva Frye Age: 29 yrs Sex: Female : 1990 Arrival Date: 03/22/2019 Time: 00:51 Bed 14 Private MD: ED Physician Rony Garcia HPI: 03/22 01:13 This 29 yrs old Female presents to ER via Ambulatory with complaints of rn Toothache - pulled out. 01:13 The patient presents with pain. The problem is located in the tooth #3. Onset: The rn symptoms/episode began/occurred just prior to arrival. 01:21 Duration: The symptoms are continuous. Modifying factors: The symptoms are alleviated rn by nothing, the symptoms are aggravated by talking. Severity of symptoms: At their worst the symptoms were mild, in the emergency department the symptoms are unchanged. The patient has not experienced similar symptoms in the past. Reports has been having tooth pain recently, seen by dentist, told needed root canal but was too expensive, continued to have pain so decided to pull tooth out tonight with pliers, no active bleeding, but read on internet she could so came in worried. Pain is mild. . 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 - Social history:: Smoking status: Patient/guardian denies using tobacco. - Ebola Screening: : Patient negative for fever greater than or equal to 101.5 degrees Fahrenheit, and additional compatible Ebola Virus Disease symptoms Patient denies exposure to infectious person Patient denies travel to an Ebola-affected area in the 21 days before illness onset No symptoms or risks identified at this time. - Family history:: not pertinent. - Hospitalizations: : No recent hospitalization is reported. ROS: 01:21 Constitutional: Negative for fever, chills, and weight loss, ENT: + pain to tooth rn socket Neuro: Negative for headache, weakness, numbness, tingling, and seizure. Exam: 01:21 Constitutional: This is a well developed, well nourished patient who is awake, alert, rn and in no acute distress. ENT: No active bleeding from socket of tooth #3, no lacerations, has clot at base. Vital Signs: 01:05 BP 133 / 76; Pulse 83; Resp 20; Temp 97.4; Pulse Ox 99% on R/A; Weight 94.35 kg; Height ed1 5 ft. 4 in. (162.56 cm); Pain 9/10; 01:59 BP 138 / 94; Pulse 80; Resp 16; Pulse Ox 100% on R/A; jb4 01:05 Body Mass Index 35.70 (94.35 kg, 162.56 cm) ed1 MDM: 01:07 Patient medically screened. rn 01:21 Differential diagnosis: pulled tooth. Data reviewed: vital signs, nurses notes, and as rn a result, I will discharge patient. Counseling: I had a detailed discussion with the patient and/or guardian regarding: the historical points, exam findings, and any diagnostic results supporting the discharge/admit diagnosis, the need for outpatient follow up, to return to the emergency department if symptoms worsen or persist or if there are any questions or concerns that arise at home. Response to treatment: the patient's symptoms have mildly improved after treatment, and as a result, I will discharge patient. Special discussion: I discussed with the patient/guardian in detail that at this point there is no indication for admission to the hospital. It is understood, however, that if the symptoms persist or worsen the patient needs to return immediately for re-evaluation. Based on the history and exam findings, there is no indication for further emergent testing or inpatient evaluation. I discussed with the patient/guardian the need to see a dentist for further evaluation of the symptoms. Administered Medications: 01:57 Drug: TORadol 30 mg Route: IM; Site: right gluteus; jb4 02:01 Follow up: Response: No adverse reaction; Medication administered at discharge. jb4 01:57 Drug: [place] 10 mg-325 mg 1 tabs Route: PO; jb4 02:01 Follow up: Response: No adverse reaction; Medication administered at discharge. jb4 Disposition: 03/22/19 01:25 Discharged to Home. Impression: Manual tooth extraction, uncomplicated. - Condition is Stable. - Discharge Instructions: Tooth Avulsion. - Prescriptions for Clindamycin HCl 300 mg Oral Capsule - take 1 capsule by ORAL route every 6 hours for 10 days; 40 capsule. - Medication Reconciliation Form, Thank You Letter, Antibiotic Education, Prescription Opioid Use form. - Follow up: Private Physician; When: As needed; Reason: Recheck today's complaints, Re-evaluation by your physician. - Problem is new. - Symptoms have improved. Signatures: Rony Garcia MD MD rn Geno oGmez RN RN ed1 Jama Henson RN RN jb4 Corrections: (The following items were deleted from the chart) 02:02 01:25 03/22/2019 01:25 Discharged to Home. Impression: Manual tooth extraction, jb4 uncomplicated. Condition is Stable. Forms are Medication Reconciliation Form, Thank You Letter, Antibiotic Education, Prescription Opioid Use. Follow up: Private Physician; When: As needed; Reason: Recheck today's complaints, Re-evaluation by your physician. Problem is new. Symptoms have improved. rn
[2019-03-22] MEDS ORDERED: HYDROCODONE/APAP 10/325 TAB ONE (01:58)
[2019-03-22] MEDS ORDERED: KETOROLAC 30 MG/ML INJ ONE (01:59)
== END 2019-03-22 02:02 | disposition home or self-care (01) ==
LOC: ER 00:50
DX: K08.199 Complete loss of teeth due to other specified cause, unspecified class (principal); Z88.1 Allergy status to other antibiotic agents; Z88.8 Allergy status to other drugs, medicaments and biological substances
CPT/HCPCS: 96372; 99283